=== PATIENT | female | born 1940 | race Caucasian/White ===

== ENCOUNTER 2016-11-06 19:56 | Inpatient (IN) | payer MEDICARE, OTHER ==
[2016-11-06] MEDS ORDERED: NORMAL SALINE 1000 ML 500 ML IV ONE (20:01)
[2016-11-06 20:32] LABS: ABSOLUTE BASOPHILS # (AUTO) 0.1 10^3/uL (0.0-0.2); ABSOLUTE EOSINOPHILS # (AUTO) 0.4 10^3/uL (0.0-0.6); ABSOLUTE LYMPHOCYTES (AUTO) 4.1 10^3/uL (0.5-4.7); ABSOLUTE MONOCYTES (AUTO) 0.6 10^3/uL (0.1-1.4); BASOPHILS % (AUTO) 1.4 % (0-2); EOSINOPHILS % (AUTO) 3.8 % (0-6); HEMATOCRIT 34.3 % (36.0-47.0); HEMOGLOBIN 10.9 g/dL (12.0-15.5); HGB HCT DIFFERENCE -1.6; LYMPHOCYTES % (AUTO) 44.1 % (13-45); MEAN CORPUSCULAR HEMOGLOBIN 26.6 pg (27.0-33.4); MEAN CORPUSCULAR HGB CONC 31.9 g/dL (32.0-36.0); MEAN CORPUSCULAR VOLUME 83 fl (80-97); RED BLOOD COUNT 4.11 10^6/uL (3.72-5.28); RED CELL DISTRIBUTION WIDTH 14.4 % (11.5-14.0); SEGMENTED NEUTROPHILS % (AUTO) 43.7 % (42-78); WHITE BLOOD COUNT 9.3 10^3/uL (4.0-10.5)
[2016-11-06 20:37] LABS: PROTHROMBIN TIME 12.8 SEC (11.4-15.4)
[2016-11-06 20:38] LABS: PARTIAL THROMBOPLASTIN TIME 32.8 SEC (23.5-35.8)
[2016-11-06 20:45] LABS: ALANINE AMINOTRANSFERASE 23 U/L (9-52); ALBUMIN 3.8 g/dL (3.5-5.0); ALKALINE PHOSPHATASE 96 U/L (38-126); ANION GAP 10 (5-19); ASPARTATE AMINO TRANSFERASE 16 U/L (14-36); BILIRUBIN,DIRECT 0.3 mg/dL (0.0-0.4); BILIRUBIN,TOTAL 0.4 mg/dL (0.2-1.3); BLOOD UREA NITROGEN 17 mg/dL (7-20); CALCIUM 9.6 mg/dL (8.4-10.2); CARBON DIOXIDE 25 mmol/L (22-30); CHLORIDE 108 mmol/L (98-107); CREATININE RESULT 0.76 mg/dL (0.52-1.25); GLUCOSE 113 mg/dL (75-110); SODIUM 142.7 mmol/L (137-145); TOTAL PROTEIN 6.4 g/dL (6.3-8.2)
--- NOTE | 2016-11-06 21:06 | ER Document Report ---
ED General - General Chief Complaint: Bloody Stools Stated Complaint: RECTAL BLEEDING Time Seen by Provider: 11/06/16 20:00 Notes: Patient is a 75 year old female without any significant past medical history, remote history of an upper GI bleed but no history of a lower GI bleed, last colonoscopy was greater than 10 years ago who presents with one episode of bright red blood per rectum. Patient states that she had a bowel movement approximately 2 hours prior to arrival which the entire toilet bowl is covered in bright red blood. She has not had any additional bowel movements since that time. She does not use anticoagulation. Notes that she has had some associated diffuse abdominal cramping that is mild in nature and not present at time of assessment. Nothing improves or worsens her symptoms. She has not spoken to her primary care doctor regarding today's concerns. TRAVEL OUTSIDE OF THE [place] IN LAST 30 DAYS: No - Related Data Allergies/Adverse Reactions: No Known Allergies Allergy (Unverified 04/26/14 17:18) Home Medications: Current Home Medications No Home Medications 11/07/16 [History] Past Medical History - General Information source: Patient - Social History Smoking Status: Never Smoker Chew tobacco use (# tins/day): No Frequency of alcohol use: None Drug Abuse: None Lives with: Spouse/Significant other Family History: Reviewed & Not Pertinent Pulmonary Medical History: Reports: Hx COPD Review of Systems - Review of Systems Notes: Constitutional: Negative for fever. HENT: Negative for sore throat. Eyes: Negative for visual changes. Cardiovascular: Negative for chest pain. Respiratory: Negative for shortness of breath. Gastrointestinal: Positive for rectal bleeding Genitourinary: Negative for dysuria. Musculoskeletal: Negative for back pain. Skin: Negative for rash. Neurological: Negative for headaches, weakness or numbness. 10 point ROS negative except as marked above and in HPI. Physical Exam - Vital signs Vitals: Resp Pulse Ox 18 96 11/06/16 20:04 11/06/16 20:04 Interpretation: Normal Notes: PHYSICAL EXAMINATION: GENERAL: Well-appearing, well-nourished and in no acute distress. HEAD: Atraumatic, normocephalic. EYES: Pupils equal round and reactive to light, extraocular movements intact, sclera anicteric, conjunctiva are normal. ENT: nares patent, oropharynx clear without exudates. Moist mucous membranes. NECK: Normal range of motion, supple without lymphadenopathy LUNGS: Breath sounds clear to auscultation bilaterally and equal. No wheezes rales or rhonchi. HEART: Regular rate and rhythm without murmurs ABDOMEN: Soft, nontender, normoactive bowel sounds. No guarding, no rebound. No masses appreciated. Rectal: Small amount of bright red blood without any masses or fissures seen on rectal examination EXTREMITIES: Normal range of motion, no pitting or edema. No cyanosis. NEUROLOGICAL: No focal neurological deficits. Moves all extremities spontaneously and on command. PSYCH: Normal mood, normal affect. SKIN: Warm, Dry, normal turgor, no rashes or lesions noted. Course - Re-evaluation Re-evalutation: 11/06/16 21:05 Patient presents with bright red blood per rectum, scant amount of blood on rectal exam at this time without any evidence of active hemorrhage. Patient is otherwise very well in appearance, awake, talking, has only had one bloody bowel movement. Hemodynamically within normal limits. Labs the type and screen will be sent. 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 Will discuss with the hospitalist for admission. 11/06/16 21:49 Patient has not had any further episodes of bright red blood per rectum. Remains hemodynamically within normal limits. Hemoglobin and hematocrit are only minimally decreased. I discussed Dr. Casey who agrees to admit. - Vital Signs Vital signs: Temp Pulse Resp BP Pulse Ox 97.9 F 65 22 H 135/63 H 100 11/06/16 23:55 11/06/16 23:55 11/06/16 23:55 11/06/16 23:55 11/06/16 23:55 - Laboratory Result Diagrams: 11/07/16 00:35 11/06/16 20:20 Laboratory results interpreted by me: 11/06/16 11/06/16 20:20 20:20 Hgb 10.9 L Hct 34.3 L MCH 26.6 L MCHC 31.9 L RDW 14.4 H Chloride 108 H Glucose 113 H Discharge - Discharge Clinical Impression: Bright red blood per rectum, Lower GI bleed Admitting Provider: Rhonda Casey Unit Admitted: [facility]
[2016-11-06] MEDS ORDERED: ONDANSETRON HCL INJ/PF 4 MG/2 ML SDV IV PRN (21:46)
[2016-11-06] MEDS: HEPARIN SOD (PORCINE) 5,000 UNIT/ML 1 ML SYRINGE SUBCUT SCH (22:00)
[2016-11-06] MEDS: NORMAL SALINE 1000 ML 1,000 ML IV SCH (22:16)
[2016-11-07 00:41] LABS: ABSOLUTE BASOPHILS # (AUTO) 0.1 10^3/uL (0.0-0.2); ABSOLUTE EOSINOPHILS # (AUTO) 0.3 10^3/uL (0.0-0.6); ABSOLUTE LYMPHOCYTES (AUTO) 3.4 10^3/uL (0.5-4.7); ABSOLUTE MONOCYTES (AUTO) 0.7 10^3/uL (0.1-1.4); ABSOLUTE NEUT (AUTO) 5.7 10^3/uL (1.7-8.2); BASOPHILS % (AUTO) 1.3 % (0-2); EOSINOPHILS % (AUTO) 2.9 % (0-6); HEMATOCRIT 31.4 % (36.0-47.0); HEMOGLOBIN 9.9 g/dL (12.0-15.5); HGB HCT DIFFERENCE -1.7; LYMPHOCYTES % (AUTO) 33.5 % (13-45); MEAN CORPUSCULAR HEMOGLOBIN 26.2 pg (27.0-33.4); MEAN CORPUSCULAR HGB CONC 31.5 g/dL (32.0-36.0); MEAN CORPUSCULAR VOLUME 83 fl (80-97); MONOCYTES % (AUTO) 6.4 % (3-13); RED BLOOD COUNT 3.76 10^6/uL (3.72-5.28); RED CELL DISTRIBUTION WIDTH 14.5 % (11.5-14.0); SEGMENTED NEUTROPHILS % (AUTO) 55.9 % (42-78); WHITE BLOOD COUNT 10.3 10^3/uL (4.0-10.5)
--- NOTE | 2016-11-07 00:51 | PDOC H&P ---
History of Present Illness Admission Date/PCP: 11/06/16 21:46 Patient complains of: Bright red blood per rectum History of Present Illness: LATOYA RHODES is a 75 year old female with a past medical history of tobacco dependence who has been her usual state of health until approximately 1 hour prior to presentation. Patient had a spontaneous nonpainful episode of bright red blood per rectum with bowel movement without constipation, new medication or previous episode. Estimated blood loss was approximately 1/2 cup she has had no further episodes. In the emergency room she is found to have a reduced hemoglobin of 10.9 and heme positive stools she is referred to the hospital for admission patient otherwise complains of chronic gnawing abdominal pain exacerbated by food resulting in frequent loose, floating and malodorous stools stools. Patient denies weight loss, significant fatigue or recent colonoscopy. Past Medical History Psychiatric Medical History: Reports: Tobacco Dependency Past Surgical History Past Surgical History: Reports: Cholecystectomy, Hysterectomy Social History Information Source: Patient Lives with: Spouse/Significant other - Spouse with advanced dementia and she is primary caregiver Smoking Status: Current Every Day Smoker Cigarettes Packs Per Day: 1 Frequency of Alcohol Use: None Hx Prescription Drug Abuse: No - Advance Directive Resuscitation Status: Full Code Family History Family History: DM, Malignancy Parental Family History Reviewed: Yes Children Family History Reviewed: Yes Sibling(s) Family History Reviewed.: Yes Medication/Allergy Allergies/Adverse Reactions: No Known Allergies Allergy (Unverified 04/26/14 17:18) Review of Systems Constitutional: PRESENT: as per HPI Eyes: ABSENT: visual disturbances Ears: ABSENT: hearing changes Cardiovascular: ABSENT: chest pain, dyspnea on exertion, edema, orthropnea, palpitations Respiratory: ABSENT: cough, hemoptysis Gastrointestinal: PRESENT: abdominal pain, bloating. ABSENT: coffee ground emesis, constipation, diarrhea, dysphagia, heartburn Genitourinary: ABSENT: dysuria, hematuria Musculoskeletal: ABSENT: joint swelling Integumentary: ABSENT: rash, wounds Neurological: ABSENT: abnormal gait, abnormal speech, confusion, dizziness, focal weakness, syncope Psychiatric: PRESENT: as per HPI Endocrine: ABSENT: cold intolerance, heat intolerance, polydipsia, polyuria Hematologic/Lymphatic: ABSENT: easy bleeding, easy bruising Physical Exam Vital Signs: Temp Pulse Resp BP Pulse Ox 97.9 F 65 22 H 135/63 H 100 11/06/16 23:55 11/06/16 23:55 11/06/16 23:55 11/06/16 23:55 11/06/16 23:55 General appearance: PRESENT: no acute distress, well-developed, well-nourished Head exam: PRESENT: atraumatic, normocephalic Eye exam: PRESENT: conjunctiva pink, EOMI, PERRLA. ABSENT: scleral icterus Ear exam: PRESENT: normal external ear exam Mouth exam: PRESENT: moist, tongue midline Neck exam: ABSENT: carotid bruit, JVD, lymphadenopathy, thyromegaly Respiratory exam: PRESENT: clear to auscultation keshav. ABSENT: rales, rhonchi, wheezes Cardiovascular exam: PRESENT: RRR. ABSENT: diastolic murmur, rubs, systolic murmur Pulses: PRESENT: normal dorsalis pedis pul Vascular exam: PRESENT: normal capillary refill GI/Abdominal exam: PRESENT: normal bowel sounds, soft. ABSENT: distended, guarding, mass, organolmegaly, rebound, tenderness Rectal exam: PRESENT: deferred Extremities exam: PRESENT: full ROM. ABSENT: calf tenderness, clubbing, pedal edema Neurological exam: PRESENT: alert, awake, oriented to person, oriented to place , oriented to time, oriented to situation, CN II-XII grossly intact. ABSENT: motor sensory deficit Psychiatric exam: PRESENT: appropriate affect, normal mood. ABSENT: homicidal ideation, suicidal ideation Skin exam: PRESENT: dry, intact, warm. ABSENT: cyanosis, rash Results Laboratory Results: 11/07/16 00:35 11/07/16 00:35 WBC 10.3 RBC 3.76 Hgb 9.9 L Hct 31.4 L MCV 83 MCH 26.2 L MCHC 31.5 L RDW 14.5 H Plt Count 259 Seg Neutrophils % 55.9 Lymphocytes % 33.5 Monocytes % 6.4 Eosinophils % 2.9 Basophils % 1.3 Absolute Neutrophils 5.7 Absolute Lymphocytes 3.4 Absolute Monocytes 0.7 Absolute Eosinophils 0.3 Absolute Basophils 0.1 Assessment & Plan - Diagnosis (1) Anemia Is this a current diagnosis for this admission?: YesPlan: Acute blood loss from lower GI bleed, no coagulopathy no constipation likely internal hemorrhoids will obtain GI consultation and follow-up CBC (2) Chronic abdominal pain Is this a current diagnosis for this admission?: YesPlan: Patient describes abdominal pain with meals frequent loose stools malodorous and floating concern for chronic pancreatitis with malabsorption will evaluate lipase and defer to gastroenterology (3) Tobacco abuse Is this a current diagnosis for this admission?: YesPlan: Tobacco Dependence patient received tobacco cessation counseling and offered nicotine replacement options (4) Bright red blood per rectum Is this a current diagnosis for this admission?: YesPlan: Likely internal hemorrhoid versus diverticular bleed GI consultation pending follow-up serial CBCs as needed blood transfusion - Time Time Spent: 50 to 70 Minutes - Inpatient Certification Medical Necessity: Need Close Monitoring Due to Risk of Patient Decompensation
[2016-11-07] MEDS: NORMAL SALINE 1000 ML 1,000 ML IV SCH (03:57)
[2016-11-07 06:02] LABS: ABSOLUTE BASOPHILS # (AUTO) 0.1 10^3/uL (0.0-0.2); ABSOLUTE EOSINOPHILS # (AUTO) 0.3 10^3/uL (0.0-0.6); ABSOLUTE LYMPHOCYTES (AUTO) 2.8 10^3/uL (0.5-4.7); ABSOLUTE MONOCYTES (AUTO) 0.7 10^3/uL (0.1-1.4); ABSOLUTE NEUT (AUTO) 4.7 10^3/uL (1.7-8.2); BASOPHILS % (AUTO) 1.4 % (0-2); EOSINOPHILS % (AUTO) 3.5 % (0-6); HEMATOCRIT 29.8 % (36.0-47.0); HEMOGLOBIN 9.6 g/dL (12.0-15.5); LYMPHOCYTES % (AUTO) 33.1 % (13-45); MEAN CORPUSCULAR HEMOGLOBIN 26.3 pg (27.0-33.4); MEAN CORPUSCULAR HGB CONC 32.1 g/dL (32.0-36.0); MEAN CORPUSCULAR VOLUME 82 fl (80-97); MONOCYTES % (AUTO) 7.9 % (3-13); RED BLOOD COUNT 3.64 10^6/uL (3.72-5.28); RED CELL DISTRIBUTION WIDTH 14.6 % (11.5-14.0); SEGMENTED NEUTROPHILS % (AUTO) 54.1 % (42-78); WHITE BLOOD COUNT 8.6 10^3/uL (4.0-10.5)
[2016-11-07] MEDS: HEPARIN SOD (PORCINE) 5,000 UNIT/ML 1 ML SYRINGE SUBCUT SCH (06:03)
[2016-11-07 08:22] LABS: ABSOLUTE BASOPHILS # (AUTO) 0.1 10^3/uL (0.0-0.2); ABSOLUTE EOSINOPHILS # (AUTO) 0.2 10^3/uL (0.0-0.6); ABSOLUTE LYMPHOCYTES (AUTO) 2.2 10^3/uL (0.5-4.7); ABSOLUTE MONOCYTES (AUTO) 0.5 10^3/uL (0.1-1.4); ABSOLUTE NEUT (AUTO) 4.8 10^3/uL (1.7-8.2); BASOPHILS % (AUTO) 1.5 % (0-2); EOSINOPHILS % (AUTO) 2.7 % (0-6); HEMATOCRIT 30.7 % (36.0-47.0); HEMOGLOBIN 9.7 g/dL (12.0-15.5); HGB HCT DIFFERENCE -1.6; LYMPHOCYTES % (AUTO) 28.3 % (13-45); MEAN CORPUSCULAR HEMOGLOBIN 26.5 pg (27.0-33.4); MEAN CORPUSCULAR HGB CONC 31.8 g/dL (32.0-36.0); MEAN CORPUSCULAR VOLUME 83 fl (80-97); RED BLOOD COUNT 3.68 10^6/uL (3.72-5.28); RED CELL DISTRIBUTION WIDTH 14.6 % (11.5-14.0); SEGMENTED NEUTROPHILS % (AUTO) 61.5 % (42-78); WHITE BLOOD COUNT 7.8 10^3/uL (4.0-10.5)
--- NOTE | 2016-11-07 10:47 | PROGRESS NOTE E ---
Progress Note NAME: LATOYA RHODES : 1940 AGE: 75Y DATE: 11/07/2016 ROOM: 315 SUBJECTIVE: The patient is lying in bed. She states that she feels overall just very tired. She denies any nausea, vomiting. No further diarrhea. No shortness of breath, dizziness, chest pain. No fevers, chills. The patient has been afebrile. Her blood pressures have been in a good range. The patient does not voice any other concerns at this time. REVIEW OF SYSTEMS: The rest of the review of systems is negative. MEDICATIONS: Medications have been reviewed. OBJECTIVE: GENERAL: The patient is a 75-year-old female who is awake, alert, and oriented to person, place, time, and situation. She is verbal, conversational, ambulatory. She does not appear to be in any acute distress. VITAL SIGNS: As follows: Temperature is 98.0, pulse 86, respirations 22, blood pressure 134/68, and oxygen saturation is 99% on room air. SKIN: Warm and dry. No rash, not diaphoretic. HEENT: Pupils are equal, round, reactive to light and accommodation. Conjunctiva is pink. No JVP. CARDIOVASCULAR: Heart is regular. No murmur or rub. CHEST: Clear, symmetrical, nonlabored. ABDOMEN: Soft, nontender, nondistended. BACK: No CVA tenderness or sacral edema. EXTREMITIES: No clubbing, cyanosis, edema. PSYCHIATRIC: Appropriate affect, pleasant mood. DIAGNOSTICS: Lab values are as follows. Hematology obtained on 11/07/2016: WBCs are 7.8, hemoglobin is 9.7, hematocrit is 30.7, platelet count is 264,000. Chemistry obtained on 11/06/2016: Sodium is 142, potassium 4, chloride 108, carbon dioxide is 25, BUN 17, creatinine 0.76, glucose 113, calcium is 9.6, lipase is 123.8. IMPRESSION AND PLAN: 1. LOWER GI BLEED. There is evidence of bright red bleeding per rectum. The patient's hemoglobin has gone from 10.9 down to 9.7. Will continue to monitor this. Currently awaiting GI input. Will continue clear liquid diet and will follow. 2. TOBACCO DEPENDENCY. Will continue p.r.n. nicotine patch. DISPOSITION: THE PATIENT IS A FULL CODE. Pending patient's symptomatology and diagnostic findings, will re-evaluate in the a.m. Time spent on this followup, including assessment/plan, physical examination, patient education, is 25 minutes. ADDENDUM: The patient has had a reoccurrence of bleeding since arrival. Patient continues to be weak. Estimated blood loss >50cc. Concern for hemorrhage therefore will remain inpatient. Will repeat labs and transfuse accordingly. DICTATING PHYSICIAN: KYUNG ARAYA NP [id number] PHY#: [id number] ID: [id number] JOB#: [id number] ACCT: [id number] cc: > MTDD
--- NOTE | 2016-11-07 12:16 | Physician Advisory Note ---
Physician Advisor ProgressNote .: Pursuant to the plan for [facility], I have reviewed the medical record for this patient. Physician Advisor Statement: Please consider documentin. "Attending is concerned about pt & feels need for 2nd MN of monitoring in hospital because " - or else she may be more approp as Obs. Status: 75yo Medicare pt w/COPD, ongoing tobacco abuse, distant [facility], past shannon, who came in after 1 episode BRBPR w/abd cramping, admitting to bloating & chr abd pain worsened by food w/freq loose malodorous stools. Last baseline Hgb per hosp chart was 14 in 2013. Came in NAD with initial HR 92 then 60s-70s, RR22, BP 135/63, Hgb 10.9, WBC nl, lipase 123.8. ED gave 500ml IVF. Admitting attending ordered tele, IV Zofran, GI consult, clear liquids po, CBC q6h, SQ heparin q8h for DVT prophylaxis, I/Os, daily wts, O2 2L. F/u Hgbs - high 9s. After first MN, nursing documented pt had 1 maroon BM, then 2 more bloody BMs, then reported to MD swan called critical Hgb of 7.8 at 06:25, for which transfusion was ordered. Subsequently, it was found that Hgb level was actually still high 9s. She is feeling very tired. HR still 60s-70s. BP steady. GI eval is planned. Spoke w/attg. She notes pt has had yet another bloody BM in the last hour per nursing - bleeding remains acute, has not stabilized. She is concerned about pt & does not feel comfortable sending her home today. Should have been Obs to start. However, now appropriate for Inpt status. CK
[2016-11-07] MEDS ORDERED: ONDANSETRON HCL INJ/PF 4 MG/2 ML SDV IV PRN (12:20)
[2016-11-07 12:35] LABS: ABSOLUTE BASOPHILS # (AUTO) 0.1 10^3/uL (0.0-0.2); ABSOLUTE EOSINOPHILS # (AUTO) 0.2 10^3/uL (0.0-0.6); ABSOLUTE LYMPHOCYTES (AUTO) 2.7 10^3/uL (0.5-4.7); ABSOLUTE MONOCYTES (AUTO) 0.4 10^3/uL (0.1-1.4); ABSOLUTE NEUT (AUTO) 4.6 10^3/uL (1.7-8.2); BASOPHILS % (AUTO) 1.3 % (0-2); EOSINOPHILS % (AUTO) 2.1 % (0-6); HEMOGLOBIN 8.9 g/dL (12.0-15.5); HGB HCT DIFFERENCE -1.3; LYMPHOCYTES % (AUTO) 33.5 % (13-45); MEAN CORPUSCULAR HEMOGLOBIN 26.4 pg (27.0-33.4); MEAN CORPUSCULAR HGB CONC 31.9 g/dL (32.0-36.0); MEAN CORPUSCULAR VOLUME 83 fl (80-97); MONOCYTES % (AUTO) 5.5 % (3-13); RED BLOOD COUNT 3.38 10^6/uL (3.72-5.28); RED CELL DISTRIBUTION WIDTH 14.6 % (11.5-14.0); SEGMENTED NEUTROPHILS % (AUTO) 57.6 % (42-78); WHITE BLOOD COUNT 7.9 10^3/uL (4.0-10.5)
[2016-11-07 18:35] LABS: ABSOLUTE BASOPHILS # (AUTO) 0.1 10^3/uL (0.0-0.2); ABSOLUTE EOSINOPHILS # (AUTO) 0.2 10^3/uL (0.0-0.6); ABSOLUTE LYMPHOCYTES (AUTO) 3.2 10^3/uL (0.5-4.7); ABSOLUTE MONOCYTES (AUTO) 0.6 10^3/uL (0.1-1.4); ABSOLUTE NEUT (AUTO) 4.1 10^3/uL (1.7-8.2); BASOPHILS % (AUTO) 1.2 % (0-2); EOSINOPHILS % (AUTO) 2.4 % (0-6); HEMATOCRIT 26.3 % (36.0-47.0); HEMOGLOBIN 8.3 g/dL (12.0-15.5); HGB HCT DIFFERENCE -1.4; LYMPHOCYTES % (AUTO) 39.1 % (13-45); MEAN CORPUSCULAR HEMOGLOBIN 26.4 pg (27.0-33.4); MEAN CORPUSCULAR HGB CONC 31.7 g/dL (32.0-36.0); MEAN CORPUSCULAR VOLUME 83 fl (80-97); MONOCYTES % (AUTO) 7.1 % (3-13); RED BLOOD COUNT 3.16 10^6/uL (3.72-5.28); RED CELL DISTRIBUTION WIDTH 14.5 % (11.5-14.0); SEGMENTED NEUTROPHILS % (AUTO) 50.2 % (42-78); WHITE BLOOD COUNT 8.1 10^3/uL (4.0-10.5)
[2016-11-07] MEDS ORDERED: BISACODYL 5 MG TABEC PO ONE (21:00)
[2016-11-08 00:32] LABS: ABSOLUTE BASOPHILS # (AUTO) 0.1 10^3/uL (0.0-0.2); ABSOLUTE EOSINOPHILS # (AUTO) 0.3 10^3/uL (0.0-0.6); ABSOLUTE MONOCYTES (AUTO) 0.6 10^3/uL (0.1-1.4); BASOPHILS % (AUTO) 1.2 % (0-2); EOSINOPHILS % (AUTO) 3.2 % (0-6); HEMATOCRIT 25.5 % (36.0-47.0); HEMOGLOBIN 8.1 g/dL (12.0-15.5); HGB HCT DIFFERENCE -1.2; LYMPHOCYTES % (AUTO) 37.7 % (13-45); MEAN CORPUSCULAR HEMOGLOBIN 26.1 pg (27.0-33.4); MEAN CORPUSCULAR HGB CONC 31.6 g/dL (32.0-36.0); MEAN CORPUSCULAR VOLUME 83 fl (80-97); MONOCYTES % (AUTO) 7.5 % (3-13); RED BLOOD COUNT 3.09 10^6/uL (3.72-5.28); RED CELL DISTRIBUTION WIDTH 14.5 % (11.5-14.0); SEGMENTED NEUTROPHILS % (AUTO) 50.4 % (42-78); WHITE BLOOD COUNT 7.9 10^3/uL (4.0-10.5)
[2016-11-08 06:51] LABS: ABSOLUTE BASOPHILS # (AUTO) 0.1 10^3/uL (0.0-0.2); ABSOLUTE EOSINOPHILS # (AUTO) 0.2 10^3/uL (0.0-0.6); ABSOLUTE LYMPHOCYTES (AUTO) 2.2 10^3/uL (0.5-4.7); ABSOLUTE MONOCYTES (AUTO) 0.6 10^3/uL (0.1-1.4); ABSOLUTE NEUT (AUTO) 4.6 10^3/uL (1.7-8.2); BASOPHILS % (AUTO) 1.2 % (0-2); EOSINOPHILS % (AUTO) 2.4 % (0-6); HEMATOCRIT 26.7 % (36.0-47.0); HEMOGLOBIN 8.4 g/dL (12.0-15.5); HGB HCT DIFFERENCE -1.5; LYMPHOCYTES % (AUTO) 28.9 % (13-45); MEAN CORPUSCULAR HEMOGLOBIN 26.2 pg (27.0-33.4); MEAN CORPUSCULAR HGB CONC 31.6 g/dL (32.0-36.0); MEAN CORPUSCULAR VOLUME 83 fl (80-97); MONOCYTES % (AUTO) 7.3 % (3-13); RED BLOOD COUNT 3.21 10^6/uL (3.72-5.28); RED CELL DISTRIBUTION WIDTH 14.3 % (11.5-14.0); SEGMENTED NEUTROPHILS % (AUTO) 60.2 % (42-78); WHITE BLOOD COUNT 7.7 10^3/uL (4.0-10.5)
[2016-11-08] MEDS ORDERED: PEG 3350/NA SULF,BICARB,CL/KCL 4000 ML PO ONE (07:00)
--- NOTE | 2016-11-08 12:48 | PROGRESS NOTE E ---
Progress Note NAME: LATOYA RHODES : 1940 AGE: 75Y DATE: 11/08/2016 ROOM: 315 SUBJECTIVE: The patient was ambulating in the room whenever I rounded. The patient stated that she had blood-tinged bowel movements throughout the night with her GoLYTELY prep. The patient was seen by Dr. Castillo and is to have upper and lower endoscopies today. The patient denies any nausea, vomiting, diarrhea. No shortness of breath, dizziness, or chest pain. No fevers or chills. The patient has been afebrile. Blood pressure has been in a good range. The patient does not voice any other concerns at this time. REVIEW OF SYSTEMS: The rest of the review of systems is negative. MEDICATIONS: Medications have been reviewed. OBJECTIVE: GENERAL: The patient is a 75-year-old female who is awake, alert, and oriented to person, place, time, and situation. She is verbal and conversational, ambulatory, and does not appear to be in any acute distress. VITAL SIGNS: Temperature is 98.6, pulse 84, respirations 18, blood pressure is 143/71, oxygen saturation is 95% on room air. SKIN: Warm and dry. No rash. She is not diaphoretic. HEENT: Pupils equal, round, and reactive to light and accommodation. Conjunctivae pink. NECK: No JVD. CARDIOVASCULAR SYSTEM: Heart is regular. There is no murmur or rub. CHEST: Clear, symmetrical, unlabored. ABDOMEN: Soft, nontender, and nondistended. BACK: No CVA tenderness or sacral edema. EXTREMITIES: No clubbing, cyanosis, edema. IMPRESSION AND PLAN: 1. LOWER GI BLEED. THE PATIENT HAS HAD ONGOING BLOOD LOSS THROUGHOUT THE EVENING. HEMOGLOBIN HAS TRENDED DOWN SLIGHTLY. Will continue to monitor this. Do appreciate GI input with this. Will repeat CBC as needed and await findings on endoscopy. 2. TOBACCO DEPENDENCY. Will continue p.r.n. nicotine patch. DISPOSITION: The patient is a FULL CODE. Pending the patient's symptomatology and diagnostic findings, will reevaluate in the a.m. TIME: Time spent on this followup including assessment, plan, physical examination, and patient education was 20 minutes. DICTATING PHYSICIAN: KYUNG ARAYA NP [id number] PHY#: [id number] ID: [id number] JOB#: [id number] ACCT: [id number] cc: >
[2016-11-08] MEDS ORDERED: NALOXONE HCL INJ/PF 0.4 MG/1 ML SDV ONE (16:11)
[2016-11-08] MEDS ORDERED: FLUMAZENIL INJ 0.5 MG/5 ML VIAL IV ONE (16:11)
[2016-11-08] MEDS ORDERED: EPINEPHRINE INJ 1 MG/10 ML DISP.SYRIN ONE (16:11)
[2016-11-08] MEDS ORDERED: GLUCAGON,HUMAN RECOMB 1 MG INJ ONE (16:12)
[2016-11-08] MEDS ORDERED: NORMAL SALINE 250 ML IV PRN ×2 (18:16)
--- NOTE | 2016-11-08 18:16 | PDOC CONSULTATION ---
Consultation Consult Date: 11/07/16 History of Present Illness Admission Date/PCP: 11/06/16 21:46 History of Present Illness: This is a 75-year-old patient was admitted with rectal bleeding. Bleeding started about 2-1/2 days ago and she is still passing slight amount of blood. She denies abdominal pain, nausea, or vomiting. Her last colonoscopy was over 10 years ago. She is not sure if she has diverticulosis. Her admission hemoglobin was 10.9, down to 8.4 but stable for the last 12 hours. The last available hemoglobin in January 2014 was 14.2. Past Medical History Pulmonary Medical History: Reports: Chronic Obstructive Pulmonary Disease (COPD) Psychiatric Medical History: Reports: Tobacco Dependency Past Surgical History Past Surgical History: Reports: Cholecystectomy, Hysterectomy Social History Lives with: Spouse/Significant other Smoking Status: Never Smoker Cigarettes Packs Per Day: 1 Frequency of Alcohol Use: None Hx Prescription Drug Abuse: No - Advance Directive Resuscitation Status: Full Code Family History Family History: Reviewed & Not Pertinent Parental Family History Reviewed: No Children Family History Reviewed: NA Sibling(s) Family History Reviewed.: NA Medication/Allergy Home Medications: No Home Medications 11/07/16 Allergies/Adverse Reactions: No Known Allergies Allergy (Unverified 04/26/14 17:18) Review of Systems All systems: reviewed and no additional remarkable complaints except as stated Physical Exam Vital Signs: Temp Pulse Resp BP Pulse Ox 98.4 F 79 20 117/94 H 100 11/08/16 16:21 11/08/16 16:21 11/08/16 16:21 11/08/16 16:21 11/08/16 16:21 Intake & Output 11/07/16 11/08/16 11/09/16 06:59 06:59 06:59 Intake Total 1493 1597 0 Output Total 850 2000 1100 Balance 643 -403 -1100 Weight 79 kg 77.5 kg Exam: General: Patient is alert and looks well. HEENT: There is pallor but no jaundice. PERRLA. Oropharynx normal Respiratory: Kyphosis. No respiratory distress. Chest wall palpitation was unremarkable. Breath sounds were normal Cardiovascular: Heart sounds 1 and 2 normal with no murmurs. Abdominal: Not distended. Soft and nontender. Liver and spleen not palpable. No ascites demonstrated. Bowel sounds active. Rectal examination was deferred. Extremities: No edema Neurological: Alert and oriented x4. Grossly nonfocal. Normal speech Skin: No significant rash Psychological: Normal affect Results Laboratory Results: 11/08/16 06:33 11/07/16 11/08/16 11/08/16 18:08 00:26 06:33 WBC 8.1 7.9 7.7 RBC 3.16 L 3.09 L 3.21 L Hgb 8.3 L 8.1 L 8.4 L Hct 26.3 L 25.5 L 26.7 L MCV 83 83 83 MCH 26.4 L 26.1 L 26.2 L MCHC 31.7 L 31.6 L 31.6 L RDW 14.5 H 14.5 H 14.3 H Plt Count 230 218 245 Seg Neutrophils % 50.2 50.4 60.2 Lymphocytes % 39.1 37.7 28.9 Monocytes % 7.1 7.5 7.3 Eosinophils % 2.4 3.2 2.4 Basophils % 1.2 1.2 1.2 Absolute Neutrophils 4.1 4.0 4.6 Absolute Lymphocytes 3.2 3.0 2.2 Absolute Monocytes 0.6 0.6 0.6 Absolute Eosinophils 0.2 0.3 0.2 Absolute Basophils 0.1 0.1 0.1 Assessment & Plan - Diagnosis (1) Lower GI bleed Is this a current diagnosis for this admission?: YesPlan: She likely has a diverticular bleed but she will undergo an EGD and colonoscopy for further evaluation. She has had significant drop in her hemoglobin and she will be transfused (2) Anemia Qualifiers: Other causes of anemia: acute posthemorrhagic Is this a current diagnosis for this admission?: Yes (3) Bright red blood per rectum Is this a current diagnosis for this admission?: Yes
[2016-11-08] MEDS: MIDAZOLAM 2 MG/2 ML INJ ONE ×3 (18:19→18:42)
[2016-11-08] MEDS: FENTANYL CITRATE INJ/PF 100 MCG/2 ML AMPUL ONE ×3 (18:21→18:52)
--- NOTE | 2016-11-08 19:09 | Operative Report ---
Operative Report DATE OF SURGERY: 11/08/16 Operative Report: Pre-op diagnosis: GI bleed Post-op diagnosis: 1. Antral gastritis 2. Left-sided diverticulosis 3. Sigmoid colon polyps 4. Redundant colon Surgery: Upper endoscopy with biopsy and Colonoscopy with polypectomy Medications: Versed 5mg, Fentanyl 150mcg IV push Tissue removed: Antral biopsy and colon polyps Procedure: After informed consent obtained from patient, patient's pharynx was sprayed with Hurricane and conscious sedation was achieved. The upper endoscope was then inserted into the esophagus under direct vision and advanced into the stomach and further into the duodenum. Detailed examination of the duodenum, stomach and the esophagus was then performed. A digital rectal examination was performed and this was unremarkable. The colonoscope was inserted into the rectum and advanced to the proximal ascending colon. Patient has a very redundant colon and it was difficult to keep her sedated. The mucosa was examined into details as the colonoscope was slowly pulled out of the patient. The endoscope was retroflexed in the rectum. Patient tolerated the procedure well. Findings Esophagus: Normal Stomach: Mild erythema in the gastric antrum Duodenum: Normal Cecum: Not intubated Ascending colon: Normal Transverse colon: Normal Descending colon: A few diverticuli Sigmoid colon: Multiple diverticuli. Two 5-6 mm polyps removed with a hot polypectomy snare Rectum: Normal except for internal hemorrhoids Plan: Her bleeding is most likely from her diverticular disease. Follow-up H& H. Repeat colonoscopy as outpatient and with propofol OPERATION: .
[2016-11-09 04:28] LABS: ABSOLUTE BASOPHILS # (AUTO) 0.1 10^3/uL (0.0-0.2); ABSOLUTE EOSINOPHILS # (AUTO) 0.2 10^3/uL (0.0-0.6); ABSOLUTE LYMPHOCYTES (AUTO) 2.9 10^3/uL (0.5-4.7); ABSOLUTE MONOCYTES (AUTO) 0.6 10^3/uL (0.1-1.4); ABSOLUTE NEUT (AUTO) 4.6 10^3/uL (1.7-8.2); BASOPHILS % (AUTO) 1.2 % (0-2); EOSINOPHILS % (AUTO) 2.2 % (0-6); HEMATOCRIT 29.3 % (36.0-47.0); HEMOGLOBIN 9.4 g/dL (12.0-15.5); HGB HCT DIFFERENCE -1.1; LYMPHOCYTES % (AUTO) 34.7 % (13-45); MEAN CORPUSCULAR HEMOGLOBIN 26.7 pg (27.0-33.4); MEAN CORPUSCULAR VOLUME 84 fl (80-97); MONOCYTES % (AUTO) 7.4 % (3-13); RED BLOOD COUNT 3.51 10^6/uL (3.72-5.28); RED CELL DISTRIBUTION WIDTH 14.6 % (11.5-14.0); SEGMENTED NEUTROPHILS % (AUTO) 54.5 % (42-78); WHITE BLOOD COUNT 8.4 10^3/uL (4.0-10.5)
--- NOTE | 2016-11-09 09:53 | DISCHARGE SUMMARY E ---
Discharge Summary NAME: LATOYA RHODES : 1940 AGE: 75Y ADMITTED: 11/06/2016 DISCHARGED: 11/09/2016 CODE STATUS: FULL CODE. CONSULTING SNOWBOARDING INSTRUCTOR: Dr. Castillo DISCHARGE DIAGNOSES: Includes: 1. Diverticular bleed. 2. Acute blood loss anemia. 3. Tobacco dependency. DISCHARGE MEDICATIONS: None. DIET: Low residual. ACTIVITY: As tolerated. DIAGNOSTICS: Lab values are as follows: Hematology obtained on 11/09/2016: WBCs are 8.4, hemoglobin is 9.4, hematocrit is 29.3, platelet count is 190,000. Coagulation obtained on 11/06/2016: PT is 12.8, INR is 0.90. Chemistry obtained on 11/06/2016: Sodium is 142, potassium 4.0, chloride is 108, carbon dioxide 25, BUN 17, creatinine is 0.76. Glucose 113, calcium is 9.6, bilirubin 0.4. AST 16, ALT is 23, Alk phos 96, total protein 6.4, albumin 3.8, lipase is 123. Other body source obtained on 11/06/2016: Stool for occult blood is positive. EGD and colonoscopy obtained on 11/08/2016 reveals: 1. Antral gastritis. 2. Left-sided diverticulosis. 3. Sigmoid colon polyps. 4. Redundant colon. PHYSICAL EXAMINATION: GENERAL: On examination, the patient is a well-developed, well-nourished 75-year-old female who is awake, alert, and oriented to person, place, time, and situation. She is verbal, conversational, ambulatory, does not appear to be in acute distress. VITAL SIGNS: Temperature is 98.1, pulse 54, respirations 18, blood pressure 123/52, oxygen saturation 98% on room air. SKIN: Warm and dry. No rash. Not diaphoretic. HEENT: Pupils equal, round, and reactive to light and accommodation. Conjunctivae pink. No JVP. CARDIOVASCULAR SYSTEM: Heart is regular. There is no murmur or rub. CHEST: Clear, symmetrical, unlabored. ABDOMEN: Soft, nontender, nondistended. BACK: No CVA tenderness or sacral edema. EXTREMITIES: No clubbing, cyanosis, edema. PSYCHIATRIC: Appropriate affect, pleasant mood. HISTORY OF PRESENT ILLNESS: The patient is a 75-year-old female with a past medical history of only tobacco dependency. The patient presented to the emergency department with a chief complaint of bright red bleeding per rectum. The patient noted spontaneous nonpainful episode of bright red bleeding with a bowel movement without constipation. The patient denied any previous event for this except for the remote history years ago. The patient estimated her blood loss to be about a half a cup, and while in the emergency department, she was noted to have a hemoglobin of 10.9 with heme-positive stools. The patient was referred to the hospitalist for admission and management. HOSPITAL COURSE: The patient was admitted to continuous telemetry unit. Serial hemoglobins were obtained, which showed initial drop, but overall improvement of her hemoglobin. The patient was seen and evaluated by Dr. Castillo with Gastroenterology and the patient underwent upper and lower endoscopy. Findings were consistent with antral gastritis and diverticulosis. Although there was no obvious stigmata, it was felt that her symptoms were related to a diverticular bleed, which has been self limiting as the patient has had no further episodes since prior to being prepped. The patient is completely asymptomatic and denies any nausea, vomiting, diarrhea, shortness of breath, dizziness, chest pain. No fevers, chills. The patient is afebrile. Her blood pressure has been in a good range and the patient is eager for discharge. DISCHARGE PLANNING: The patient is advised to follow up with Dr. Castillo within 1-2 weeks for hospital followup. Time spent on this discharge including assessment, plan, physical examination, patient education, and specialty collaboration is 25 minutes. DICTATING PHYSICIAN: KYUNG ARAYA NP [id number] Y#: [id number] ID: [id number] JOB#: [id number] ACCT: [id number] cc:Jeane ALMANZA NP >
[2016-11-09 10:30] VITALS: BP 121/59
== END 2016-11-09 11:07 | disposition home or self-care (01) | DRG 378 ==
LOC: ER 19:56 → EH 21:46 → UNDOADMIN 22:14 → 3W 11-07 00:13
PROVIDERS: ADMIT Internal Medicine; ATTEND Internal Medicine
PROC: 30233N1 Transfusion of Nonautologous Red Blood Cells into Peripheral Vein, Percutaneous Approach (ICD-10-PCS; 2016-11-08)
PROC: 0DB68ZX Excision of Stomach, Via Natural or Artificial Opening Endoscopic, Diagnostic (ICD-10-PCS; principal; 2016-11-08 17:00)
PROC: 0DBN8ZZ Excision of Sigmoid Colon, Via Natural or Artificial Opening Endoscopic (ICD-10-PCS; 2016-11-08 17:00)
DX: K57.31 Diverticulosis of large intestine without perforation or abscess with bleeding (principal); D62 Acute posthemorrhagic anemia; K29.70 Gastritis, unspecified, without bleeding; K63.5 Polyp of colon; J44.9 Chronic obstructive pulmonary disease, unspecified; M40.209 Unspecified kyphosis, site unspecified; F17.210 Nicotine dependence, cigarettes, uncomplicated; Z90.49 Acquired absence of other specified parts of digestive tract; Z90.710 Acquired absence of both cervix and uterus; Z83.3 Family history of diabetes mellitus; Z80.9 Family history of malignant neoplasm, unspecified
CPT/HCPCS: 36415; 36430; 43239; 45385; 80053; 82272; 83690; 85025; 85610; 85730; 86850; 86900; 86901; 86920; 88305; 88342; 96360; 96372; 99285; J0171; J1610; J1644; J2250; J2310; J3010; J3490; J7030; P9016

== ENCOUNTER → 2016-12-19 | Outpatient (CLI) | payer MEDICARE, OTHER ==
[2016-12-19 10:34] LABS: HEMATOCRIT 34.7 % (36.0-47.0); HEMOGLOBIN 11.2 g/dL (12.0-15.5); HGB HCT DIFFERENCE -1.1; MEAN CORPUSCULAR HEMOGLOBIN 26.7 pg (27.0-33.4); MEAN CORPUSCULAR HGB CONC 32.3 g/dL (32.0-36.0); MEAN CORPUSCULAR VOLUME 83 fl (80-97); RED CELL DISTRIBUTION WIDTH 16.2 % (11.5-14.0)
== END ==
LOC: OD 09:32
PROVIDERS: ATTEND Physician Assistant Surgical
DX: K29.00 Acute gastritis without bleeding (principal); D12.5 Benign neoplasm of sigmoid colon; K62.5 Hemorrhage of anus and rectum
CPT/HCPCS: 36415; 85027

== ENCOUNTER 2017-08-25 10:31 | Emergency (ER) | payer MEDICARE, OTHER ==
--- NOTE | 2017-08-25 11:19 | ER Document Report ---
ED General - General Chief Complaint: Rectal Bleeding Stated Complaint: BLEEDING FROM RECTUM Time Seen by Provider: 08/25/17 11:08 Mode of Arrival: Ambulatory Information source: Patient Notes: 76-year-old female history of hemorrhoids presents with complaints of bright red rectal bleeding over the past week. Patient notes she feels generalized weakness but denies any specific chest pain shortness of breath difficulty breathing headache dizziness or any other complaints. She sees Dr. Castillo and just wanted her blood work checked to make sure that she is not anemic from the blood loss. She does not it is not a significant amount that is just bright red and believes it is from her hemorrhoids TRAVEL OUTSIDE OF THE [place] IN LAST 30 DAYS: No - HPI Onset: Last week Onset/Duration: Intermittent Quality of pain: No pain Severity: Mild Pain Level: Denies Associated symptoms: Weakness, Other Exacerbated by: Other - wiping Relieved by: Denies Similar symptoms previously: Yes Recently seen / treated by doctor: Yes - Related Data Allergies/Adverse Reactions: No Known Allergies Allergy (Verified 08/25/17 10:32) Past Medical History - Social History Smoking Status: Current Every Day Smoker Cigarette use (# per day): Yes Chew tobacco use (# tins/day): No Smoking Education Provided: No Frequency of alcohol use: None Drug Abuse: None Family History: Reviewed & Not Pertinent Patient has suicidal ideation: No Patient has homicidal ideation: No Pulmonary Medical History: Reports: Hx COPD Neurological Medical History: Denies: Hx Seizures Renal/ Medical History: Denies: Hx Peritoneal Dialysis Past Surgical History: Reports: Hx Cholecystectomy, Hx Hysterectomy, Hx Orthopedic Surgery - Right knee - Immunizations Hx Pneumococcal Vaccination: 05/01/15 Review of Systems - Review of Systems Notes: REVIEW OF SYSTEMS: CONSTITUTIONAL : Denies fever, chills, or sweats. Denies recent illness. EENT: Denies eye, ear, throat, or mouth pain or symptoms. Denies nasal or sinus congestion or discharge. Denies throat, tongue, or mouth swelling or difficulty swallowing. CARDIOVASCULAR: Denies chest pain. Denies palpitations or racing or irregular heart beat. Denies ankle edema. RESPIRATORY: Denies cough, cold, or chest congestion. Denies shortness of breath, difficulty breathing, or wheezing. GASTROINTESTINAL: admits to right red rectal bleeding GENITOURINARY: Denies difficulty urinating, painful urination, burning, frequency, blood in urine, or discharge. MUSCULOSKELETAL: Denies back or neck pain or stiffness. Denies joint pain or swelling. SKIN: Denies rash, lesions or sores. HEMATOLOGIC : Denies easy bruising or bleeding. LYMPHATIC: Denies swollen, enlarged glands. NEUROLOGICAL: admits to weakness PSYCHIATRIC: Denies anxiety or stress. Denies depression, suicidal ideation, or homicidal ideation. ALL OTHER SYSTEMS REVIEWED AND NEGATIVE. Dictation was performed using [email or web address] voice recognition software PHYSICAL EXAMINATION: GENERAL: Well-appearing, well-nourished and in no acute distress. HEAD: Atraumatic, normocephalic. EYES: Pupils equal round and reactive to light, extraocular movements intact, sclera anicteric, conjunctiva are normal. ENT: Nares patent, oropharynx clear without exudates. Moist mucous membranes. NECK: Normal range of motion, supple without lymphadenopathy LUNGS: Breath sounds clear to auscultation bilaterally and equal. No wheezes rales or rhonchi. HEART: Regular rate and rhythm without murmurs ABDOMEN: Soft, nontender, nondistended abdomen. No guarding, no rebound. No masses appreciated. bright red rectal bleeding noted from hemorrhoid Musculoskeletal: Normal range of motion, no pitting or edema. No cyanosis. NEUROLOGICAL: Cranial nerves grossly intact. Normal speech, normal gait. Normal sensory, motor exams PSYCH: Normal mood, normal affect. SKIN: Warm, Dry, normal turgor, no rashes or lesions noted. Physical Exam - Vital signs Vitals: Temp Pulse Resp BP Pulse Ox 98.3 F 80 18 157/69 H 96 08/25/17 10:38 08/25/17 10:38 08/25/17 10:38 08/25/17 10:38 08/25/17 10:38 Course - Re-evaluation Re-evalutation: 08/25/17 11:38 Patient's examination is most consistent with a hemorrhoid that is bleeding, she denies any blood in her stool only when she wipes, patient notes she has follow-up with Dr. Castillo on Monday08/25/17 12:35 Patient's lab work notes no anemia, she wishes to be discharged home to follow- up with her GI specialist, given that she is stable is not actively bleeding heavily I believe she is stable for discharge After performing a Medical Screening Examination, I estimate there is LOW risk for ACUTE APPENDICITIS, BOWEL OBSTRUCTION, ACUTE CHOLECYSTITIS, PERFORATED DIVERTICULITIS, INCARCERATED HERNIA, PANCREATITIS, PELVIC INFLAMMATORY DISEASE, PERFORATED ULCER, ECTOPIC , or TUBO-OVARIAN ABSCESS, thus I consider the discharge disposition reasonable. Also, there is no evidence or peritonitis , sepsis, or toxicity. I have reevaluated this patient multiple times and no significant life threatening changes are noted. The patient and I have discussed the diagnosis and risks, and we agree with discharging home with close follow-up with the understanding that symptoms and presentations can change. We also discussed returning to the Emergency Department immediately if new or worsening symptoms occur. We have discussed the symptoms which are most concerning (e.g., bloody stool, fever, changing or worsening pain, vomiting) that necessitate immediate return. - Vital Signs Vital signs: Temp Pulse Resp BP Pulse Ox 98.3 F 80 18 157/69 H 96 08/25/17 10:38 08/25/17 10:38 08/25/17 10:38 08/25/17 10:38 08/25/17 10:38 - Laboratory Result Diagrams: 08/25/17 11:48 08/25/17 11:48 Laboratory results interpreted by me: 08/25/17 08/25/17 11:48 11:48 MCH 26.9 L RDW 16.4 H Chloride 108 H Discharge - Discharge Clinical Impression: Bright red blood per rectum Condition: Stable Disposition: HOME, SELF-CARE Instructions: Rectal Bleeding, Unclear Cause ([facility]) Additional Instructions: Please follow-up with Dr. Castillo on Monday per your previous appointment or return immediately if there are any symptoms or any other worsening conditions
[2017-08-25 12:06] LABS: ABSOLUTE BASOPHILS # (AUTO) 0.1 10^3/uL (0.0-0.2); ABSOLUTE EOSINOPHILS # (AUTO) 0.2 10^3/uL (0.0-0.6); ABSOLUTE LYMPHOCYTES (AUTO) 2.1 10^3/uL (0.5-4.7); ABSOLUTE MONOCYTES (AUTO) 0.5 10^3/uL (0.1-1.4); ABSOLUTE NEUT (AUTO) 6.3 10^3/uL (1.7-8.2); BASOPHILS % (AUTO) 0.9 % (0-2); EOSINOPHILS % (AUTO) 2.5 % (0-6); HEMATOCRIT 40.2 % (36.0-47.0); HEMOGLOBIN 13.1 g/dL (12.0-15.5); MEAN CORPUSCULAR HEMOGLOBIN 26.9 pg (27.0-33.4); MEAN CORPUSCULAR HGB CONC 32.5 g/dL (32.0-36.0); MEAN CORPUSCULAR VOLUME 83 fl (80-97); MONOCYTES % (AUTO) 5.7 % (3-13); PLATELET COUNT 340 10^3/uL (150-450); RED BLOOD COUNT 4.86 10^6/uL (3.72-5.28); RED CELL DISTRIBUTION WIDTH 16.4 % (11.5-14.0); SEGMENTED NEUTROPHILS % (AUTO) 67.9 % (42-78); TOTAL CELLS COUNTED % (AUTO) 100 %; WHITE BLOOD COUNT 9.3 10^3/uL (4.0-10.5)
[2017-08-25 12:19] LABS: ALANINE AMINOTRANSFERASE 21 U/L (9-52); ALKALINE PHOSPHATASE 100 U/L (38-126); ANION GAP 8 (5-19); ASPARTATE AMINO TRANSFERASE 17 U/L (14-36); BILIRUBIN,DIRECT 0.2 mg/dL (0.0-0.4); BILIRUBIN,TOTAL 0.4 mg/dL (0.2-1.3); BLOOD UREA NITROGEN 10 mg/dL (7-20); CALCIUM 9.7 mg/dL (8.4-10.2); CARBON DIOXIDE 29 mmol/L (22-30); CHLORIDE 108 mmol/L (98-107); GLUCOSE 108 mg/dL (75-110); POTASSIUM 4.2 mmol/L (3.6-5.0); SODIUM 144.8 mmol/L (137-145); TOTAL PROTEIN 6.6 g/dL (6.3-8.2)
[2017-08-25 12:42] VITALS: BP 154/86
== END 2017-08-25 12:41 | disposition home or self-care (01) ==
LOC: ER 10:31
DX: K64.9 Unspecified hemorrhoids (principal); R53.1 Weakness; F17.210 Nicotine dependence, cigarettes, uncomplicated; J44.9 Chronic obstructive pulmonary disease, unspecified; Z90.49 Acquired absence of other specified parts of digestive tract; Z90.710 Acquired absence of both cervix and uterus
CPT/HCPCS: 36415; 80053; 85025; 99283

== ENCOUNTER → 2017-12-21 | Outpatient (CLI) | payer MEDICARE, OTHER ==
[2017-12-21 09:36] LABS: ABSOLUTE BASOPHILS # (AUTO) 0.1 10^3/uL (0.0-0.2); ABSOLUTE EOSINOPHILS # (AUTO) 0.3 10^3/uL (0.0-0.6); ABSOLUTE LYMPHOCYTES (AUTO) 2.2 10^3/uL (0.5-4.7); ABSOLUTE MONOCYTES (AUTO) 0.4 10^3/uL (0.1-1.4); ABSOLUTE NEUT (AUTO) 4.2 10^3/uL (1.7-8.2); BASOPHILS % (AUTO) 1.4 % (0-2); EOSINOPHILS % (AUTO) 4.4 % (0-6); HEMOGLOBIN 12.8 g/dL (12.0-15.5); MEAN CORPUSCULAR HEMOGLOBIN 28.5 pg (27.0-33.4); MEAN CORPUSCULAR HGB CONC 33.8 g/dL (32.0-36.0); MEAN CORPUSCULAR VOLUME 84 fl (80-97); MONOCYTES % (AUTO) 6.2 % (3-13); PLATELET COUNT 282 10^3/uL (150-450); RED CELL DISTRIBUTION WIDTH 14.5 % (11.5-14.0); TOTAL CELLS COUNTED % (AUTO) 100 %; WHITE BLOOD COUNT 7.2 10^3/uL (4.0-10.5)
[2017-12-21 09:55] LABS: ALANINE AMINOTRANSFERASE 19 U/L (9-52); ALBUMIN 3.8 g/dL (3.5-5.0); ALKALINE PHOSPHATASE 94 U/L (38-126); ANION GAP 10 (5-19); ASPARTATE AMINO TRANSFERASE 16 U/L (14-36); BILIRUBIN,DIRECT 0.2 mg/dL (0.0-0.4); BILIRUBIN,TOTAL 0.5 mg/dL (0.2-1.3); BLOOD UREA NITROGEN 11 mg/dL (7-20); CALCIUM 9.5 mg/dL (8.4-10.2); CARBON DIOXIDE 29 mmol/L (22-30); CHLORIDE 107 mmol/L (98-107); CHOLESTEROL 205.28 mg/dL (0-200); GLUCOSE 91 mg/dL (75-110); POTASSIUM 4.3 mmol/L (3.6-5.0); SODIUM 145.8 mmol/L (137-145); TOTAL PROTEIN 6.4 g/dL (6.3-8.2); TRIGLYCERIDES 52 mg/dL (<150)
[2017-12-21 10:06] LABS: DIRECT LDL 124 mg/dL (<100)
== END ==
LOC: OD 08:46
PROVIDERS: ATTEND Internal Medicine
DX: D64.9 Anemia, unspecified (principal); E78.5 Hyperlipidemia, unspecified; R10.9 Unspecified abdominal pain; E03.9 Hypothyroidism, unspecified; E55.9 Vitamin D deficiency, unspecified
CPT/HCPCS: 36415; 80053; 80061; 82306; 84443; 85025

== ENCOUNTER → 2018-02-02 | Outpatient (CLI) | payer MEDICARE, OTHER ==
--- NOTE | 2018-02-02 10:38 | WOMENS IMAGING REPORT ---
EXAM DESCRIPTION: BONE DENSITY HIP/SPINE COMPLETED DATE/TIME: 02/02/2018 9:48 am REASON FOR STUDY: OSTEOPOROSIS Z12.31 ENCNTR SCREEN MAMMOGRAM FOR MALIGNANT NEOPLASM OF ARIS M81.0 AGE-RELATED OSTEOPOROSIS W/O CURRENT PATHOLOGICAL FRAC COMPARISON: 2013 TECHNIQUE: Dual-Energy X-ray Absorptiometry (DEXA) of the AP Spine and Hip. LIMITATIONS: None. FINDINGS: LUMBAR SPINE: The bone mineral density (BMD) measured from L1-L4 in the AP projection correlates with a T-score of -0.5, previously -1.0, which is normal as defined by the World Health Organization. HIP: The bone mineral density (BMD) measured in the left hip correlates with a T-score of -1.0, previously 0.1, which is osteopenia as defined by the World Health Organization. IMPRESSION: 1. LUMBAR SPINE: NORMAL. 2. HIP: OSTEOPENIA. COMMENT: The World Health Organization defines low BMD as follows: T-score: Normal: Greater than -1.0 Osteopenia: Between -1.0 and -2.5 Osteoporosis: Less than -2.5 without fractures Established osteoporosis: Less than -2.5 with fractures In general, you may wish to consider: Diagnosis Treatment Follow-up DEXA Normal BMD Prevention 2-3 years Osteopenia Prevention/Therapy 1-2 years Osteoporosis Therapy Yearly TECHNICAL DOCUMENTATION: JOB ID: [id number]- All Rights Reserved Reading location - IP/workstation name: [email or web address]
--- NOTE | 2018-02-02 11:11 | WOMENS IMAGING REPORT ---
EXAM DESCRIPTION: BILAT SCREENING MAMMO W/CAD COMPLETED DATE/TIME: 02/02/2018 9:48 am REASON FOR STUDY: SCREENING MAMMO Z12.31 ENCNTR SCREEN MAMMOGRAM FOR MALIGNANT NEOPLASM OF ARIS M81. 0 AGE-RELATED OSTEOPOROSIS W/O CURRENT PATHOLOGICAL FRAC COMPARISON: None. TECHNIQUE: Standard craniocaudal and mediolateral oblique views of each breast recorded using digita l acquisition. LIMITATIONS: None. FINDINGS: No masses, calcifications or architectural distortion. No areas of suspicion. Read with the assistance of CAD. .[facility] - R2 Cenova Version 1.3 .[facility] - R2 Cenova Version 1.[address] - R2 Cenova Version 2.4 .[facility] [place] - R2 Cenova Version 2.4 .[facility] - R2 Orientation And Mobility Instructor Version 9.2 IMPRESSION: NORMAL MAMMOGRAM. BIRADS 1. BREAST DENSITY: b. There are scattered areas of fibroglandular density. BIRAD: 1 NEGATIVE RECOMMENDATION: ROUTINE SCREENING COMMENT: The patient has been notified of the results by letter per MQSA requirements. Additional no tification policies are in place for contacting patient with suspicious or incomplete findings. Quality ID #225: The [employer] recommends an annual screening mammogram for women aged 40 years or over. This facility utilizes a reminder system to ensure that all patients receive reminder letters, and/or direct phone calls for appointments. This includes reminders for routine scr eening mammograms, diagnostic mammograms, or other Breast Imaging Interventions when appropriate. Th is patient will be placed in the appropriate reminder system. The [employer] (ACR) has developed recommendations for screening MRI of the breast s in certain patient populations, to be used in conjunction with mammography. Breast MRI surveillanc e may be appropriate for women with more than 20% lifetime risk of developing breast cancer as deter mined by genetic testing, significant family history of the disease, or history of mantle radiation f or Hodgkins Disease. ACR Practice Guidelines 2008. TECHNICAL DOCUMENTATION: FINDING NUMBER: (1) ASSESSMENT: (1) JOB ID: [id number] [employer]- All Rights Reserved Reading location - IP/workstation name: [email or web address]
== END ==
LOC: WI 09:19
PROVIDERS: ATTEND Internal Medicine
DX: Z12.31 Encounter for screening mammogram for malignant neoplasm of breast (principal); M81.0 Age-related osteoporosis without current pathological fracture
CPT/HCPCS: 77067; 77080

== ENCOUNTER → 2018-11-05 | Outpatient (CLI) | payer MEDICARE ==
--- NOTE | 2018-11-05 16:36 | RADIOLOGY REPORT (SQ) ---
EXAM DESCRIPTION: CAROTID DOPPLER COMPLETED DATE/TIME: 11/05/2018 2:55 pm REASON FOR STUDY: BRUIT R09.89 OTH SYMPTOMS AND SIGNS INVOLVING THE CIRC AND RESP SY COMPARISON: None. TECHNIQUE: Grayscale ultrasound, Doppler velocity and spectra, and color Doppler images acquired of the extra-cranial carotid and vertebral arteries. Images stored on PACS. LIMITATIONS: None. FINDINGS: RIGHT CAROTID CCA Velocities: Within normal limits. Right common carotid artery peak systolic velocity 1.4 m/sec ICA Velocities Peak systolic 0.52 m/s. End diastolic 0.21 m/s. Proximal ICA/CCA peak systolic ratio normal. There is mixed calcific and noncalcific plaque at the right carotid bifurcation. Immediately distal to the shadowing plaque, ICA velocities suggest against flow significant stenosis. Remainder of the cervical ICA is tortuous. Right external carotid artery peak systolic velocity 2 m/sec, correlating with 50 to 69% stenosis LEFT CAROTID CCA Velocities: Within normal limits. Left common carotid artery peak systolic velocity 1.1 m/sec ICA Velocities Peak systolic 0.86 m/s. End diastolic 0.27 m/s. Proximal ICA/CCA peak systolic ratio normal. No significant plaque at the origin of the left ICA. Normal velocities, no flow significant stenosis of the left ICA. There is calcific plaque at the left carotid bifurcation causing a ECA stenosis, e xternal carotid artery peak systolic velocity 2.3 m/sec correlates with 50 to 69% narrowing. VERTEBRAL ARTERIES: Antegrade flow. Normal waveforms. SUBCLAVIAN ARTERIES: Not evaluated OTHER: No other significant finding. IMPRESSION: No flow significant stenosis of the proximal right or left internal carotid arteries at the bifurcations. There is calcific plaque and elevated velocities in the external carotid arteries bilaterally, sugges ting 50 to 69% ECA stenosis COMMENT: Quality ID #195: Velocity criteria are extrapolated from the diameter data as defined by t he Society of Radiologists in Ultrasound Consensus Conference. Radiology 2003: 229; 340-346. TECHNICAL DOCUMENTATION: JOB ID: [id number]- All Rights Reserved Reading location - IP/workstation name: [facility]
== END ==
LOC: SP 13:17
PROVIDERS: ATTEND Internal Medicine
DX: R09.89 Other specified symptoms and signs involving the circulatory and respiratory systems (principal)
CPT/HCPCS: 93880

== ENCOUNTER → 2019-01-30 | Outpatient (CLI) | payer MEDICARE ==
[2019-01-30 09:56] LABS: ALBUMIN 3.8 g/dL (3.5-5.0); ALKALINE PHOSPHATASE 104 U/L (38-126); ANION GAP 7 (5-19); ASPARTATE AMINO TRANSFERASE 15 U/L (14-36); BILIRUBIN,DIRECT 0.2 mg/dL (0.0-0.4); BILIRUBIN,TOTAL 0.4 mg/dL (0.2-1.3); BLOOD UREA NITROGEN 10 mg/dL (7-20); CALCIUM 9.4 mg/dL (8.4-10.2); CARBON DIOXIDE 28 mmol/L (22-30); CHLORIDE 105 mmol/L (98-107); CHOLESTEROL 187.32 mg/dL (0-200); GLUCOSE 91 mg/dL (75-110); POTASSIUM 4.5 mmol/L (3.6-5.0); TOTAL PROTEIN 6.5 g/dL (6.3-8.2); TRIGLYCERIDES 47 mg/dL (<150)
[2019-01-30 10:08] LABS: DIRECT LDL 130 mg/dL (<100)
== END ==
LOC: OD 08:26
PROVIDERS: ATTEND Family Medicine
DX: E78.2 Mixed hyperlipidemia (principal); E55.9 Vitamin D deficiency, unspecified
CPT/HCPCS: 36415; 80053; 80061; 82306

== ENCOUNTER 2019-04-11 09:05 | Emergency (ER) | payer MEDICARE ==
[2019-04-11] MEDS ORDERED: PANTOPRAZOLE SODIUM 40 MG VIAL IV PRN (09:41)
--- NOTE | 2019-04-11 09:43 | ER Document Report ---
ED Medical Screen (RME) - General Chief Complaint: Rectal Bleeding Stated Complaint: HEMORRHOIDS Time Seen by Provider: 04/11/19 09:34 Primary Care Provider: DONNA TALLEY MD [Primary Care Provider] - Follow up as needed TRAVEL OUTSIDE OF THE [place] IN LAST 30 DAYS: No - HPI Notes: 04/11/19 09:42 78-year-old female with a history of GI bleeds presents to the emergency room w ith complaints of "Jell-O-like substance" for stool the last 3 days, dizziness that has become progressively worse. Patient states that she does see Dr. Castillo, carbonation equipment operator but she was unable to be seen by him today. Recently had a colonoscopy within the last 5 years. Patient states she has not had a bowel movement in the last couple days. Reports flatus. Denies being on blood thinners. Patient does not take a PPI. I have greeted and performed a rapid initial assessment of this patient. A comprehensive ED assessment and evaluation of the patient, analysis of test results and completion of the medical decision making process will be conducted by additional ED providers. PHYSICAL EXAMINATION: GENERAL: Well-appearing, well-nourished and in no acute distress. HEAD: Atraumatic, normocephalic. EYES: Pupils equal round extraocular movements intact, conjunctiva are normal. NECK: Normal range of motion LUNGS: No respiratory distress Musculoskeletal: Normal range of motion NEUROLOGICAL: Normal speech, normal gait. PSYCH: Normal mood, normal affect. SKIN: Warm, Dry, normal turgor, no rashes or lesions noted. - Related Data Allergies/Adverse Reactions: No Known Allergies Allergy (Verified 04/11/19 09:35) Past Medical History - Social History Chew tobacco use (# tins/day): No Frequency of alcohol use: None Drug Abuse: None Pulmonary Medical History: Reports: Hx COPD Neurological Medical History: Denies: Hx Seizures Renal/ Medical History: Denies: Hx Peritoneal Dialysis Past Surgical History: Reports: Hx Cholecystectomy, Hx Hysterectomy, Hx Orthopedic Surgery - Right knee Physical Exam - Vital signs Vitals: Temp Pulse Resp BP Pulse Ox 98.2 F 66 18 137/54 H 97 04/11/19 09:15 04/11/19 09:15 04/11/19 09:15 04/11/19 09:15 04/11/19 09:15 Course - Vital Signs Vital signs: Temp Pulse Resp BP Pulse Ox 98.2 F 66 18 137/54 H 97 04/11/19 09:35 04/11/19 09:15 04/11/19 09:35 04/11/19 09:15 04/11/19 09:35 Doctor's Discharge - Discharge Referrals: DONNA TALLEY MD [Primary Care Provider] - Follow up as needed
--- NOTE | 2019-04-11 10:14 | RADIOLOGY REPORT (SQ) ---
EXAM DESCRIPTION: CHEST SINGLE VIEW COMPLETED DATE/TIME: 04/11/2019 10:05 am REASON FOR STUDY: dizziness COMPARISON: 04/26/2014 EXAM PARAMETERS: NUMBER OF VIEWS: One view. TECHNIQUE: Single frontal radiographic view of the chest acquired. RADIATION DOSE: NA LIMITATIONS: None. FINDINGS: LUNGS AND PLEURA: Minute ill-defined right basilar opacity. No dense consolidation. No p leural effusion. No pneumothorax pre MEDIASTINUM AND HILAR STRUCTURES: No masses. Contour normal. HEART AND VASCULAR STRUCTURES: Enlarged cardiac silhouette. Aortic atherosclerosis. BONES: No acute findings. HARDWARE: None in the chest. OTHER: No other significant finding. IMPRESSION: Minimal ill-defined right basilar opacities possibly atelectasis/scarring or mild airsp david disease. TECHNICAL DOCUMENTATION: JOB ID: [id number] [employer]- All Rights Reserved Reading location - IP/workstation name: [email or web address]
[2019-04-11 10:26] LABS: INTERNATIONAL RATION (INR) 1.06; PROTHROMBIN TIME 13.8 SEC (11.4-15.4)
[2019-04-11 10:27] LABS: PARTIAL THROMBOPLASTIN TIME 32.6 SEC (23.5-35.8)
[2019-04-11 10:28] LABS: ABSOLUTE BASOPHILS # (AUTO) 0.2 10^3/uL (0.0-0.2); ABSOLUTE EOSINOPHILS # (AUTO) 0.2 10^3/uL (0.0-0.6); ABSOLUTE LYMPHOCYTES (AUTO) 1.8 10^3/uL (0.5-4.7); ABSOLUTE MONOCYTES (AUTO) 0.6 10^3/uL (0.1-1.4); BASOPHILS % (AUTO) 1.9 % (0-2); EOSINOPHILS % (AUTO) 2.8 % (0-6); HEMATOCRIT 25.7 % (36.0-47.0); LYMPHOCYTES % (AUTO) 23.1 % (13-45); MONOCYTES % (AUTO) 7.7 % (3-13); PLATELET COUNT 358 10^3/uL (150-450); RED BLOOD COUNT 4.15 10^6/uL (3.72-5.28); RED CELL DISTRIBUTION WIDTH 18.5 % (11.5-14.0); SEGMENTED NEUTROPHILS % (AUTO) 64.5 % (42-78); TOTAL CELLS COUNTED % (AUTO) 100 %; WHITE BLOOD COUNT 7.7 10^3/uL (4.0-10.5)
[2019-04-11 10:29] LABS: APPEARANCE,URINE SLIGHTLY-CLOUDY; BILIRUBIN,URINE NEGATIVE (NEGATIVE); COLOR,URINE YELLOW; GLUCOSE, URINE NEGATIVE (NEGATIVE); KETONES,URINE NEGATIVE (NEGATIVE); LEUKOCYTE ESTERASE,URINE SMALL (NEGATIVE); NITRITE,URINE NEGATIVE (NEGATIVE); PROTEIN,URINE 30 mg/dL (NEGATIVE); URINE SPECIFIC GRAVITY 1.011; UROBILINOGEN,URINE NEGATIVE mg/dL (<2.0)
[2019-04-11 10:47] LABS: ALBUMIN 3.9 g/dL (3.5-5.0); ALKALINE PHOSPHATASE 91 U/L (38-126); ANION GAP 5 (5-19); ASPARTATE AMINO TRANSFERASE 22 U/L (14-36); BILIRUBIN,DIRECT 0.1 mg/dL (0.0-0.4); BILIRUBIN,TOTAL 0.5 mg/dL (0.2-1.3); BLOOD UREA NITROGEN 7 mg/dL (7-20); CALCIUM 9.6 mg/dL (8.4-10.2); CARBON DIOXIDE 27 mmol/L (22-30); CHLORIDE 109 mmol/L (98-107); GLUCOSE 95 mg/dL (75-110); POTASSIUM 4.1 mmol/L (3.6-5.0); TOTAL PROTEIN 6.6 g/dL (6.3-8.2)
[2019-04-11 11:05] LABS: HEMOGLOBIN 7.5 g/dL (12.0-15.5)
[2019-04-11 11:20] LABS: ANISOCYTOSIS 2+; HYPOCHROMASIA 3+; POIKILOCYTOSIS 1+; POLYCHROMASIA SLIGHT
[2019-04-11 11:21] LABS: OVALOCYTES 1+; PLATELET COMMENT ADEQUATE; ROULEAUX SLIGHT
[2019-04-11 11:22] LABS: MEAN CORPUSCULAR VOLUME 62 fl (80-97)
[2019-04-11] MEDS ORDERED: NORMAL SALINE 250 ML IV PRN (11:49)
[2019-04-11] MEDS ORDERED: ACETAMINOPHEN 325 MG TABLET PO ONE (11:50)
--- NOTE | 2019-04-11 11:59 | ER Document Report ---
ED General - General Chief Complaint: Rectal Bleeding Stated Complaint: HEMORRHOIDS Time Seen by Provider: 04/11/19 09:34 Primary Care Provider: DONNA TALLEY MD [Primary Care Provider] - Follow up as needed TRAVEL OUTSIDE OF THE [place] IN LAST 30 DAYS: No - HPI Notes: Patient is a 78-year-old female with a known history of lower GI bleeding who presents emergency department for evaluation of same. She states that over the last 3 days she has had multiple episodes of bloody stools. She states it appears "like Jell-O" and anywhere from pink to dark red. She states she does have some cramping intermittently, seems to be diffuse, and she was up multiple times in the night having a bloody bowel movements. She denies any associated fevers or chills. No nausea or vomiting. She denied any blood thinners. She is followed with Dr. Castillo for some time, last saw him about a year ago. - Related Data Allergies/Adverse Reactions: No Known Allergies Allergy (Verified 04/11/19 09:35) Past Medical History - Social History Smoking Status: Current Every Day Smoker Chew tobacco use (# tins/day): No Frequency of alcohol use: None Drug Abuse: None Family History: Reviewed & Not Pertinent Patient has suicidal ideation: No Patient has homicidal ideation: No Pulmonary Medical History: Reports: Hx COPD Neurological Medical History: Denies: Hx Seizures Renal/ Medical History: Denies: Hx Peritoneal Dialysis GI Medical History: Reports: Hx Colonoscopy Past Surgical History: Reports: Hx Cholecystectomy, Hx Hysterectomy, Hx Orthopedic Surgery - Right knee - Immunizations Hx Pneumococcal Vaccination: 05/01/15 Review of Systems - Review of Systems Constitutional: No symptoms reported EENT: No symptoms reported Cardiovascular: No symptoms reported Respiratory: No symptoms reported Gastrointestinal: See HPI Genitourinary: No symptoms reported Musculoskeletal: No symptoms reported Skin: No symptoms reported Neurological/Psychological: No symptoms reported Physical Exam - Vital signs Vitals: Temp Pulse Resp BP Pulse Ox 98.2 F 66 18 137/54 H 97 04/11/19 09:15 04/11/19 09:15 04/11/19 09:15 04/11/19 09:15 04/11/19 09:15 - Notes Notes: Vital signs reviewed, please refer to chart. Head is normocephalic, atraumatic. Pupils equal round, reactive to light. Neck is supple without meningismus. Heart is regular rate and rhythm. Lungs are clear to auscultation bilaterally. Abdomen is soft, diffusely tender without rebound or guarding, normoactive bowel sounds throughout. Extremities without cyanosis, clubbing. Posterior calves are nontender. Peripheral pulses are equal. Skin is warm and dry. Patient is awake, alert, neurological exam is nonfocal. Course - Re-evaluation Re-evalutation: 04/11/19 11:57 Patient presents the emergency department for evaluation. On arrival she had blood work placed as through triage. Her hemoglobin is found to be 7.5. She states that she not have any any active bleeding, telling when she sits down to move her bowels. The patient prefaces this entire interview by stating she does not want to stay in the hospital. she definitely needs blood. I am inclined to perform imaging as well, particularly given her diffuse abdominal tenderness. She is agreeable to this, but still states she will sign out AGAINST MEDICAL ADVICE after receiving blood. I will go back and speak to the patient in regards to this decision, otherwise we will continue to monitor. 04/11/19 16:18 Patient stayed for some time here in the emergency department, was in the middle of receiving her first unit of blood, when she was unable to reach her . She wants to leave AGAINST MEDICAL ADVICE. I spoke to Dr. Talley about this patient. She is aware of her, aware of my concern with this mass, as well as the colitis, anemia, and the fact that she is leaving AGAINST MEDICAL ADVICE. She will contact her and follow-up closely. Case management also saw the patient, we are in the process of setting up outpatient CT-guided biopsy of this abdominal mass. Patient understands that if at any point she changes her mind she can come to the emergency department for further evaluation and treatment. Otherwise, the patient is currently stable, and is leaving AGAINST MEDICAL ADVICE. 04/11/19 16:19 Please note patient was already aware of the left sided kidney stone. - Vital Signs Vital signs: Temp Pulse Resp BP Pulse Ox 98.5 F 66 12 133/54 H 97 04/11/19 14:10 04/11/19 09:15 04/11/19 13:19 04/11/19 13:19 04/11/19 09:35 - Laboratory Result Diagrams: 04/11/19 09:30 04/11/19 09:30 Laboratory results interpreted by me: 04/11/19 04/11/19 04/11/19 09:30 09:30 09:30 Hgb 7.5 L Hct 25.7 L MCV 62 L MCH 18.0 L MCHC 29.0 L RDW 18.5 H Chloride 109 H Urine Protein 30 H Ur Leukocyte Esterase SMALL H Crossmatch 04/11/19 11:57 Hgb Hct MCV MCH MCHC RDW Chloride Urine Protein Ur Leukocyte Esterase Crossmatch See Detail - Diagnostic Test Radiology reviewed: Reports reviewed Radiology results interpreted by me: 04/11/19 16:19 Chest X-Ray 04/11/19 09:39 IMPRESSION: Minimal ill-defined right basilar opacities possibly atelectasis/scarring or mild airspace disease. Abdomen/Pelvis CT 04/11/19 11:50 IMPRESSION: 1. There is inflammatory thickening and fat stranding about the descending colon (series 601, image 31). This appears to be unrelated to sigmoid diverticula which are present more distally. Findings are consistent with nonspecific infectious, inflammatory, or ischemic colitis. 2. There is a 5 mm obstructive calculus in the mid left ureter with mild associated left hydronephrosis and hydroureter. Additional tiny nonobstructive calculi present bilaterally. 3. There is a mass in the anterior right hemiabdomen measuring 3.4 x 3.2 x 3.7 cm (series 3, image 55, series 602, image 41), concerning for malignancy. This is of uncertain origin and possibly within the small bowel mesentery or arising from the peritoneum. This may be characterized by PET-CT for metabolic activity and likely amenable to percutaneous CT-guided biopsy given size and location. 4. Chronic incidental and postoperative findings as detailed above. - EKG Interpretation by Me Additional EKG results interpreted by me: 04/11/19 11:59 Sinus mechanism with a rate of 61 bpm, PAC noted. Normal axis and intervals, no acute ST changes concerning for ischemia or infarction. Discharge - Discharge Clinical Impression: Lower GI bleed, Anemia, Abdominal mass, Colitis Condition: Stable Disposition: AGAINST MEDICAL ADVICE Instructions: Anemia ([facility]), Rectal Bleeding, Unclear Cause ([facility]) Additional Instructions: You have elected to leave AGAINST MEDICAL ADVICE. Please take the antibiotics as prescribed until they are gone. Please come back at any time if you change your mind regarding admission. There is also a mass found on your CT scan. Your primary care doctor will be contacting you in regards to setting up testing, as well as our case management team. If you change her mind at any time regarding any issues, or certainly if you have any worsening, please return immediately to the emergency department for evaluation. Prescriptions: Ciprofloxacin HCl [Cipro 500 mg Tablet] 500 mg PO BID #14 tablet Metronidazole [Flagyl 500 mg Tablet] 500 mg PO Q6H #28 tablet Referrals: DONNA TALLEY MD [Primary Care Provider] - Follow up as needed
--- NOTE | 2019-04-11 12:56 | RADIOLOGY REPORT (SQ) ---
EXAM DESCRIPTION: CT ABD/PELVIS NO ORAL OR IV COMPLETED DATE/TIME: 04/11/2019 12:35 pm REASON FOR STUDY: abdominal tenderness, rectal bleeding COMPARISON: None. TECHNIQUE: CT scan of the abdomen and pelvis performed without intravenous or oral contrast. Images reviewed with lung, soft tissue, and bone windows. Reconstructed coronal and sagittal MPR images revi ewed. All images stored on PACS. All CT scanners at this facility use dose modulation, iterative reconstruction, and/or weight based d osing when appropriate to reduce radiation dose to as low as reasonably achievable (ALARA). [facility]: Dose Right [facility]: CareDose [facility]: Dose Right [facility]: Teradose 4D [facility]: [employer] RADIATION DOSE: CT Rad equipment meets quality standard of care and radiation dose reduction techniq ues were employed. CTDIvol: 10.0 mGy. DLP: 518 mGy-cm.mGy. LIMITATIONS: None. FINDINGS: LOWER CHEST: No significant findings. No nodules or infiltrates. NON-CONTRASTED LIVER, SPLEEN, ADRENALS: Evaluation limited by lack of IV contrast. No identified sign ificant masses. PANCREAS: No masses. No peripancreatic inflammatory changes. GALLBLADDER: Surgically absent. RIGHT KIDNEY AND URETER: No suspicious masses. Assessment limited by lack of IV contrast. Tiny nono bstructive calculus of the superior pole. No hydronephrosis or hydroureter. LEFT KIDNEY AND URETER: No suspicious masses. Assessment limited by lack of IV contrast. There is a 5 mm obstructive calculus in the mid left ureter with mild associated left hydronephrosis and hydrou reter. Additional tiny nonobstructive calculus of the inferior pole. AORTA AND RETROPERITONEUM: No aneurysm. No retroperitoneal masses or adenopathy. Calcific atheroscle rosis of the abdominal aorta and branch vessels. BOWEL AND PERITONEAL CAVITY: There is inflammatory thickening and fat stranding about the descending colon (series 601, image 31). This appears to be unrelated to sigmoid diverticula which are present more distally. There is a mass in the anterior right hemiabdomen measuring 3.4 x 3.2 x 3.7 cm (serie s 3, image 55, series 602, image 41). APPENDIX: Normal. PELVIS, BLADDER, AND ABDOMINAL WALL:No abnormal masses. Status posthysterectomy. No free fluid. Ramin dder normal. BONES: No significant findings. OTHER: No other significant finding. IMPRESSION: 1. There is inflammatory thickening and fat stranding about the descending colon (series 601, image 31). This appears to be unrelated to sigmoid diverticula which are present more distally . Findings are consistent with nonspecific infectious, inflammatory, or ischemic colitis. 2. There is a 5 mm obstructive calculus in the mid left ureter with mild associated left hydronephros is and hydroureter. Additional tiny nonobstructive calculi present bilaterally. 3. There is a mass in the anterior right hemiabdomen measuring 3.4 x 3.2 x 3.7 cm (series 3, image 55 , series 602, image 41), concerning for malignancy. This is of uncertain origin and possibly within the small bowel mesentery or arising from the peritoneum. This may be characterized by PET-CT for me tabolic activity and likely amenable to percutaneous CT-guided biopsy given size and location. 4. Chronic incidental and postoperative findings as detailed above. COMMENT: Quality ID # 436: Final reports with documentation of one or more dose reduction techniques (e.g., Automated exposure control, adjustment of the mA and/or kV according to patient size, use of iterative reconstruction technique) TECHNICAL DOCUMENTATION: JOB ID: [id number] [employer]- All Rights Reserved Reading location - IP/workstation name: [email or web address]
[2019-04-11 13:22] VITALS: BP 133/54
--- NOTE | 2019-04-11 17:03 | EKG REPORT ---
SEVERITY:- OTHERWISE NORMAL ECG - SINUS RHYTHM ATRIAL PREMATURE COMPLEX : Confirmed by: Velasquez Blakc MD 11-Apr-2019 17:02:58
[2019-04-12 13:44] LABS: PATH REVIEW PATHOLOGIST REVIEWED
== END 2019-04-11 16:24 | disposition left against medical advice (07) ==
LOC: ER 09:05
DX: K52.9 Noninfective gastroenteritis and colitis, unspecified (principal); D64.9 Anemia, unspecified; R19.00 Intra-abdominal and pelvic swelling, mass and lump, unspecified site; K92.1 Melena; N13.2 Hydronephrosis with renal and ureteral calculous obstruction; R10.817 Generalized abdominal tenderness; I49.1 Atrial premature depolarization; F17.200 Nicotine dependence, unspecified, uncomplicated; Z90.49 Acquired absence of other specified parts of digestive tract; Z90.710 Acquired absence of both cervix and uterus; Z53.20 Procedure and treatment not carried out because of patient's decision for unspecified reasons
CPT/HCPCS: 93005; 86900; 86901; 36415; 36430; 86850; 85025; 85610; 85730; 80053; 81001; 86920; 71045; 74176; 93010; P9016; A9270; 99285

== ENCOUNTER → 2019-06-10 | Outpatient (CLI) | payer MEDICARE ==
--- NOTE | 2019-06-10 13:49 | RADIOLOGY REPORT (SQ) ---
EXAM DESCRIPTION: CT CHEST WITH; CT ABD/PELVIS WITH IV ONLY COMPLETED DATE/TIME: 06/10/2019 1:04 pm REASON FOR STUDY: ABDOMINAL MASS (R19.00) R19.00 INTRA-ABD AND PELVIC SWELLING, MASS AND LUMP, UNSP SI COMPARISON: 04/11/2019 CT abdomen pelvis CONTRAST TYPE AND DOSE: contrast/concentration: Isovue 350.00 mg/ml; Total Contrast Delivered: 78.0 ml; Total Saline Delivered: 67.0 ml RENAL FUNCTION: Creatinine 0.6 TECHNIQUE: CT scan of the chest performed using helical scanning technique with dynamic intravenous contrast injection. Images reviewed with lung, soft tissue and bone windows. Reconstructed coronal a nd sagittal MPR images reviewed. All images stored on PACS. CT scan of the abdomen and pelvis performed with intravenous and without oral contrastusing helical s naun technique with dynamic intravenous contrast injection. Images reviewed with lung, soft tissu e and bone windows. Reconstructed coronal and sagittal MPR images reviewed. Delayed images for eval uation of the urinary system also acquired and evaluated. All images stored on PACS. All CT scanners at this facility use dose modulation, iterative reconstruction, and/or weight based d osing when appropriate to reduce radiation dose to as low as reasonably achievable (ALARA). [facility]: Dose Right [facility]: CareDose [facility]: Dose Right [facility]: Teradose 4D [facility]: [employer] RADIATION DOSE: CT Rad equipment meets quality standard of care and radiation dose reduction techniq ues were employed. CTDIvol: 5.5 - 6.9 mGy. DLP: 1196 mGy-cm. . LIMITATIONS: None. FINDINGS: CHEST: LUNGS AND PLEURA: No opacities, nodules, masses. No pneumothorax. No effusions. HILAR AND MEDIASTINAL STRUCTURES: No identified masses or abnormal nodes. HEART AND VASCULAR STRUCTURES: No aneurysm or dissection. No central pulmonary emboli. No pericardi al effusion. HARDWARE: None. THYROID AND OTHER SOFT TISSUES: No masses. No adenopathy. BONES: No significant finding. OTHER: No other significant finding. ABDOMEN AND PELVIS: LIVER: Normal size. No masses. No dilated ducts. SPLEEN: Normal size. No focal lesions. PANCREAS: No masses. No significant calcifications. No adjacent inflammation or peripancreatic fluid collections. Pancreatic duct not dilated. GALLBLADDER: Surgically absent ADRENAL GLANDS: No significant masses or asymmetry. RIGHT KIDNEY AND URETER: No solid masses. 2 mm right upper pole intrarenal nonobstructive stone. No hydronephrosis or hydroureter. LEFT KIDNEY AND URETER: No solid masses. No significant calcification. No hydronephrosis or hydrouret er. AORTA AND VESSELS: No aneurysm. No dissection. Renal arteries, SMA, celiac without stenosis. RETROPERITONEUM: No retroperitoneal adenopathy, hemorrhage or masses. BOWEL AND PERITONEAL CAVITY: In the right lower quadrant mesenteric fat, a 3.4 x 2.8 cm mass is prese nt on axial image 46 and coronal image 38. This has avid contrast enhancement prominent feeding and draining vessels, indicating that this is a hypervascular mass. This is adjacent to right lower quad rant mesenteric large vessels. This could represent a hypervascular metastatic lesion from patient's remote prior uterine cancer. A primary hypervascular mesenteric mass is possible. No other mesenteric hypervascular nodules are noted. No free intraperitoneal air or fluid. Gastroin testinal tract unremarkable APPENDIX: Surgically absent ABDOMINAL WALL: No masses. No hernias. PELVIS: No mass or free fluid. Normal bladder. Post hysterectomy BONES: No significant or acute findings. OTHER: No other significant finding. IMPRESSION: Unremarkable CT chest 3.4 x 2.8 cm hypervascular mass the right lower quadrant mesentery with prominent feeding and drainin g vessels. This could represent a hypervascular metastatic lesion from patient's remote prior uterin e cancer. A primary hypervascular mesenteric mass is possible. TECHNICAL DOCUMENTATION: JOB ID: [id number] Quality ID # [id number]: Final reports with documentation of one or more dose reduction techniques (e.g., Au tomated exposure control, adjustment of the mA and/or kV according to patient size, use of iterative reconstruction technique) 2010 [employer]- All Rights Reserved Reading location - IP/workstation name: [email or web address]
== END ==
LOC: RAD 12:12
PROVIDERS: ATTEND Internal Medicine Hematology & Oncology
DX: R19.03 Right lower quadrant abdominal swelling, mass and lump (principal)
CPT/HCPCS: 71260; 74177; 82565

== ENCOUNTER 2020-04-30 15:36 | Inpatient (IN) | payer MEDICARE ==
--- NOTE | 2020-04-30 17:10 | ER Document Report ---
ED Medical Screen (RME) - General Stated Complaint: NAUSEA/VOMITING/DIAHERRA Time Seen by Provider: 04/30/20 16:58 Primary Care Provider: SONIA SAHU MD [Primary Care Provider] - Follow up as needed Mode of Arrival: Wheelchair Information source: Patient, Relative Notes: Patient is a 79-year-old male brought in emergency room by her son with complaint of nausea vomiting and diarrhea started this morning. Patient states she has had multiple bouts of vomiting and multiple bouts of watery diarrhea. She also has had some diffuse abdominal pain. She does state that she has had a hysterectomy, cholecystectomy and an appendectomy. She denies any other medical problems with exception of hypertension. And hypercholesterolemia. Son states that patient is usually very active up and walking around does not use a cane or walker or crutches and today she is not really get out of her chair. She states that she was also told that her blood pressure went low as well from her diarrhea and vomiting. Is why she is here to be evaluated the emergency room. Patient's vital signs did not capture and they are as follows temp of 97.6, heart rate 68, respiratory rate of 18, blood pressure 137/50 and an O2 sat of 95% room air. EMS brought her in and they did a rapid Covid test which turned out negative. Physical examination shows patient to be a frail-appearing 79-year-old female who is in no apparent distress on examination today however she does appear ill. Cardiac: Patient has a cardiac rate of 60 bpm on monitor and no auscultated murmurs. Lungs: Bilateral breath sounds decreased throughout no rhonchi rales or wheeze heard. Abdomen: Bowel sounds are present slightly hyperactive in all quadrants. And patient is diffusely tender. Emergency room tech notified me that she went to with the patient to the bathroom and she had a bowel movement and wound was collected a stool sample. She states that it is a foul-smelling diarrhea almost a dysentery type presentation. Sample was obtained. I have greeted and performed a rapid initial assessment of this patient. A comprehensive ED assessment and evaluation of the patient, analysis of test results and completion of the medical decision making process will be conducted by additional ED providers. Dictation of this chart was performed using voice recognition software; therefore, there may be some unintended grammatical errors. TRAVEL OUTSIDE OF THE [place] IN LAST 30 DAYS: No - Related Data Allergies/Adverse Reactions: No Known Allergies Allergy (Verified 04/11/19 09:35) Past Medical History Pulmonary Medical History: Reports: Hx COPD Neurological Medical History: Denies: Hx Seizures Renal/ Medical History: Denies: Hx Peritoneal Dialysis GI Medical History: Reports: Hx Colonoscopy Past Surgical History: Reports: Hx Cholecystectomy, Hx Hysterectomy, Hx Orthopedic Surgery - Right knee Doctor's Discharge - Discharge Referrals: SONIA SAHU MD [Primary Care Provider] - Follow up as needed
--- NOTE | 2020-04-30 17:44 | EKG REPORT ---
SEVERITY:- OTHERWISE NORMAL ECG - SINUS BRADYCARDIA PAC : Confirmed by: Laz Morales MD 30-Apr-2020 17:44:15
[2020-04-30 18:13] LABS: ABSOLUTE BASOPHILS # (AUTO) 0.1 10^3/uL (0.0-0.2); ABSOLUTE LYMPHOCYTES (AUTO) 1.8 10^3/uL (0.5-4.7); ABSOLUTE MONOCYTES (AUTO) 1.1 10^3/uL (0.1-1.4); ABSOLUTE NEUT (AUTO) 14.7 10^3/uL (1.7-8.2); BASOPHILS % (AUTO) 0.7 % (0-2); EOSINOPHILS % (AUTO) 0.1 % (0-6); MEAN CORPUSCULAR HEMOGLOBIN 16.3 pg (27.0-33.4); MEAN CORPUSCULAR HGB CONC 28.6 g/dL (32.0-36.0); MONOCYTES % (AUTO) 6.3 % (3-13); PLATELET COUNT 301 10^3/uL (150-450); RED BLOOD COUNT 4.38 10^6/uL (3.72-5.28); RED CELL DISTRIBUTION WIDTH 19.5 % (11.5-14.0); SEGMENTED NEUTROPHILS % (AUTO) 82.9 % (42-78); TOTAL CELLS COUNTED % (AUTO) 100 %; WHITE BLOOD COUNT 17.7 10^3/uL (4.0-10.5)
[2020-04-30 18:26] LABS: ALBUMIN 4.1 g/dL (3.5-5.0); ALKALINE PHOSPHATASE 126 U/L (38-126); ANION GAP 5 (5-19); ASPARTATE AMINO TRANSFERASE 25 U/L (14-36); BILIRUBIN,DIRECT 0.1 mg/dL (0.0-0.4); BILIRUBIN,TOTAL 0.4 mg/dL (0.2-1.3); BLOOD UREA NITROGEN 16 mg/dL (7-20); CALCIUM 9.9 mg/dL (8.4-10.2); CARBON DIOXIDE 30 mmol/L (22-30); CHLORIDE 103 mmol/L (98-107); GLUCOSE 189 mg/dL (75-110); POTASSIUM 3.8 mmol/L (3.6-5.0); TOTAL PROTEIN 6.9 g/dL (6.3-8.2)
--- NOTE | 2020-04-30 18:30 | RADIOLOGY REPORT (SQ) ---
EXAM DESCRIPTION: CHEST SINGLE VIEW IMAGES COMPLETED DATE/TIME: 04/30/2020 6:01 pm REASON FOR STUDY: cough COMPARISON: 04/11/2019 EXAM PARAMETERS: NUMBER OF VIEWS: One view. TECHNIQUE: Single frontal radiographic view of the chest acquired. RADIATION DOSE: NA LIMITATIONS: None. FINDINGS: LUNGS AND PLEURA: No opacities, masses or pneumothorax. No pleural effusion. MEDIASTINUM AND HILAR STRUCTURES: No masses. Contour normal. HEART AND VASCULAR STRUCTURES: Heart normal in size. Normal vasculature. BONES: No acute findings. HARDWARE: None in the chest. OTHER: No other significant finding. IMPRESSION: NO ACUTE RADIOGRAPHIC FINDING IN THE CHEST. TECHNICAL DOCUMENTATION: JOB ID: [id number] 2010 [employer]- All Rights Reserved Reading location - IP/workstation name: [email or web address]
--- NOTE | 2020-04-30 18:36 | RADIOLOGY REPORT (SQ) ---
EXAM DESCRIPTION: CT ABD/PELVIS NO ORAL OR IV IMAGES COMPLETED DATE/TIME: 04/30/2020 6:06 pm REASON FOR STUDY: pain COMPARISON: 04/11/2019 TECHNIQUE: CT scan of the abdomen and pelvis performed without intravenous or oral contrast. Images reviewed with lung, soft tissue, and bone windows. Reconstructed coronal and sagittal MPR images revi ewed. All images stored on PACS. All CT scanners at this facility use dose modulation, iterative reconstruction, and/or weight based d osing when appropriate to reduce radiation dose to as low as reasonably achievable (ALARA). [facility]: Dose Right [facility]: CareDose [facility]: Dose Right [facility]: Teradose 4D [facility]: [employer] RADIATION DOSE: CT Rad equipment meets quality standard of care and radiation dose reduction techniq ues were employed. CTDIvol: 6.6 mGy. DLP: 311 mGy-cm.mGy. LIMITATIONS: None. FINDINGS: LOWER CHEST: No significant findings. No nodules or infiltrates. NON-CONTRASTED LIVER, SPLEEN, ADRENALS: Evaluation limited by lack of IV contrast. No identified sign ificant masses. PANCREAS: No masses. No peripancreatic inflammatory changes. GALLBLADDER: Surgically absent. RIGHT KIDNEY AND URETER: No suspicious masses. Assessment limited by lack of IV contrast. 3 mm nono bstructing upper calyceal calculus. No hydronephrosis or hydroureter. LEFT KIDNEY AND URETER: No suspicious masses. Assessment limited by lack of IV contrast. 2 tiny int rarenal calculi are seen. 1 of these may be vascular. No hydronephrosis or hydroureter. AORTA AND RETROPERITONEUM: No aneurysm. No retroperitoneal masses or adenopathy. BOWEL AND PERITONEAL CAVITY: There is some fluid in the colon. No obvious bowel mass. Mild sigmoid diverticulosis with no associated inflammation. APPENDIX: Not identified. PELVIS, BLADDER, AND ABDOMINAL WALL:No abnormal masses. No free fluid. Bladder normal. BONES: No significant findings. OTHER: No other significant finding. IMPRESSION: 1. There are some small nonobstructing intrarenal calculi bilaterally. No ureteral sto ne or obstruction. 2. There is some fluid in the colon. Correlate for an enteritis. 3. Mild diverticulosis coli. COMMENT: Quality ID # 436: Final reports with documentation of one or more dose reduction techniques (e.g., Automated exposure control, adjustment of the mA and/or kV according to patient size, use of iterative reconstruction technique) TECHNICAL DOCUMENTATION: JOB ID: [id number] 2010 [employer] [employer]- All Rights Reserved Reading location - IP/workstation name: [email or web address]
[2020-04-30 18:37] LABS: ANISOCYTOSIS 2+; HYPOCHROMASIA 3+; OVALOCYTES 1+; PLATELET COMMENT ADEQUATE; POIKILOCYTOSIS 2+
[2020-04-30 18:38] LABS: MEAN CORPUSCULAR VOLUME 57 fl (80-97)
[2020-04-30 18:41] LABS: HEMOGLOBIN 7.2 g/dL (12.0-15.5)
--- NOTE | 2020-04-30 20:52 | ER Document Report ---
ED General - General Chief Complaint: Nausea/Vomiting/Diarrhea Stated Complaint: NAUSEA/VOMITING/DIAHERRA Time Seen by Provider: 04/30/20 16:58 Mode of Arrival: Wheelchair Information source: Patient Notes: Patient presents to the ER for evaluation of nausea, vomiting, diarrhea that began this morning. The patient was brought in via EMS. She did have a negative rapid Covid swab by EMS prior to arrival. She denies cough or congestion. She denies fever. She does complain of generalized abdominal pain. She describes her diarrhea as pure water. The patient is typically a very active 79-year-old but has been quite ill today. She is hard of hearing. Nursing notes reviewed and past medical, social, and family histories reviewed and validated. TRAVEL OUTSIDE OF THE [place] IN LAST 30 DAYS: No - Related Data Allergies/Adverse Reactions: No Known Allergies Allergy (Verified 04/30/20 20:40) Home Medications: Prilosec, Mucinex Past Medical History - General Information source: Patient - Social History Smoking Status: Never Smoker Chew tobacco use (# tins/day): No Smoking Education Provided: No Frequency of alcohol use: None Drug Abuse: None Lives with: Family Family History: Reviewed & Not Pertinent Patient has suicidal ideation: No Patient has homicidal ideation: No - Past Medical History Cardiac Medical History: Reports: Hx Hypercholesterolemia, Hx Hypertension Pulmonary Medical History: Reports: Hx COPD EENT Medical History: Reports: None Neurological Medical History: Reports: None Endocrine Medical History: Reports: None Renal/ Medical History: Reports: None Malignancy Medical History: Reports: None GI Medical History: Reports: Hx Colonoscopy Musculoskeletal Medical History: Reports None Skin Medical History: Reports None Psychiatric Medical History: Reports: None Traumatic Medical History: Reports: None Infectious Medical History: Reports: None Past Surgical History: Reports: Hx Cholecystectomy, Hx Hysterectomy, Hx Orthopedic Surgery - Right knee - Immunizations Hx Pneumococcal Vaccination: 05/01/15 Review of Systems - Review of Systems Notes: Constitutional: Negative for fever. HENT: Negative for sore throat. Eyes: Negative for visual changes. Cardiovascular: Negative for chest pain. Respiratory: Negative for shortness of breath. Gastrointestinal: Positive for abdominal pain. Positive for nausea, vomiting, diarrhea. Genitourinary: Negative for dysuria. Musculoskeletal: Negative for back pain. Skin: Negative for rash. Neurological: Negative for headaches, weakness or numbness. 10 point ROS negative except as marked above and in HPI. Physical Exam - Vital signs Vitals: Temp Pulse Resp BP Pulse Ox 97.9 F 71 18 159/54 H 94 04/30/20 20:10 04/30/20 20:10 04/30/20 20:10 04/30/20 20:10 04/30/20 20:10 - Notes Notes: CONSTITUTIONAL: Well appearing. No acute distress. SKIN: Warm, dry, and intact without rash EYES: Extraocular movements are grossly intact, clear conjunctiva HENT: Normocephalic, atraumatic, dry mucus membranes NECK: No obvious swelling, normal range of motion PULMONARY: Normal chest rise and fall. Breath sounds clear and equal bilaterally. No respiratory distress or stridor CARDIOVASCULAR: Regular rate. No murmurs, rubs, gallops. Distal extremities are warm and well perfused. ABDOMINAL: The abdomen is soft but diffusely tender. NEUROLOGIC: Normal speech, moves all extremities. MUSCULOSKELETAL: No gross deformities, atraumatic PSYCHIATRIC: Normal mood and affect Course - Re-evaluation Re-evalutation: 04/30/20 21:00 This case was discussed with Dr. Weber who agrees to evaluate the patient in the emergency room for admission. - Vital Signs Vital signs: Temp Pulse Resp BP Pulse Ox 97.9 F 64 18 125/47 L 94 04/30/20 20:15 04/30/20 22:22 04/30/20 20:10 04/30/20 22:22 04/30/20 20:10 - Laboratory Results Result Diagrams: 04/30/20 17:49 04/30/20 17:49 Laboratory Results Interpreted: 04/30/20 04/30/20 04/30/20 17:25 17:49 17:49 WBC 17.7 H Hgb 7.2 L Hct 25.0 L MCV 57 L MCH 16.3 L MCHC 28.6 L RDW 19.5 H Lymph % (Auto) 10.0 L Absolute Neuts (auto) 14.7 H Seg Neutrophils % 82.9 H Glucose 189 H Stool for White Cells MODERATE H Critical Laboratory Results Reviewed: Yes Attending or Supervising Physician who Reviewed Labs: RAVINDER MAJOR - Radiology Results Critical Radiology Results Reviewed: No Critical Results Discharge - Discharge Clinical Impression: Nausea vomiting and diarrhea, Diffuse abdominal pain Leukocytosis Qualifiers: Leukocytosis type: unspecified Qualified Code(s): D72.829 - Elevated white blood cell count, unspecified Disposition: ADMITTED INPATIENT [facility] Admitted: Medical [facility]
[2020-04-30] MEDS ORDERED: NORMAL SALINE 1000 ML 1,000 ML IV ONE (20:59)
[2020-04-30] MEDS ORDERED: ACETAMINOPHEN 325 MG TABLET PO PRN (22:03)
[2020-04-30] MEDS ORDERED: ONDANSETRON HCL INJ/PF 4 MG/2 ML SDV IV PRN (22:18)
[2020-04-30] MEDS ORDERED: FAMOTIDINE INJ/PF 20 MG/2 ML SDV IV ONE (22:45)
--- NOTE | 2020-04-30 22:45 | PDOC H&P ---
History of Present Illness Admission Date/PCP: 04/30/20 21:08 SONIA SAHU MD Patient complains of: Nausea, vomiting and diarrhea History of Present Illness: LATOYA RHODES is a 79 year old female with a history of tobacco dependence who is hard of hearing now presents to the ED reporting intractable nausea, vomiting and diarrhea which started this morning. She states that she had multiple episodes of vomiting of nonbilious, nonbloody ingested matter. She also had multiple episodes of watery diarrhea, she did not notice any mucus or blood in it. She also reports associated generalized abdominal pain. She states that everything started after she took a laxative in the morning. Since arriving to the ED she had 2 episodes of watery diarrhea and multiple episodes of vomiting. She states that she has been feeling wobbly and unable to keep her balance. She denies any history of hematemesis, melena, hematochezia. Past Medical History Cardiac Medical History: Reports: Hyperlipidema, Hypertension Pulmonary Medical History: Reports: Chronic Obstructive Pulmonary Disease (COPD) EENT Medical History: Reports: None Neurological Medical History: Reports: None Denies: Seizures Endocrine Medical History: Reports: None Renal/ Medical History: Reports: None Malignancy Medical History: Reports: None GI Medical History: Reports: None Musculoskeltal Medical History: Reports: None Skin Medical History: Reports: None Psychiatric Medical History: Reports: None Traumatic Medical History: Reports: None Infectious Medical History: Reports: None Past Surgical History Past Surgical History: Reports: Cholecystectomy, Hysterectomy, Orthopedic Surgery - Right knee Social History Information Source: Patient Lives with: Family Smoking Status: Current Every Day Smoker Electronic Cigarette use?: No Frequency of Alcohol Use: None Hx Prescription Drug Abuse: No - Advance Directive Resuscitation Status: Do Not Resuscitate Family History Family History: Reviewed & Not Pertinent Parental Family History Reviewed: Yes Children Family History Reviewed: Yes Sibling(s) Family History Reviewed.: Yes Medication/Allergy Home Medications: Ciprofloxacin HCl [Cipro 500 mg Tablet] 500 mg PO BID #14 tablet 04/11/19 Metronidazole [Flagyl 500 mg Tablet] 500 mg PO Q6H #28 tablet 04/11/19 Allergies/Adverse Reactions: No Known Allergies Allergy (Verified 04/30/20 20:40) Review of Systems Constitutional: ABSENT: chills, fever(s), headache(s), weight gain, weight loss Eyes: ABSENT: visual disturbances Ears: ABSENT: hearing changes Nose, Mouth, and Throat: ABSENT: headache(s), mouth pain, sore throat Cardiovascular: ABSENT: chest pain, dyspnea on exertion, edema, orthropnea, palpitations Respiratory: ABSENT: cough, hemoptysis Gastrointestinal: PRESENT: as per HPI Genitourinary: ABSENT: dysuria, hematuria Musculoskeletal: ABSENT: joint swelling Integumentary: ABSENT: rash, wounds Neurological: ABSENT: abnormal gait, abnormal speech, confusion, dizziness, focal weakness, syncope Psychiatric: ABSENT: anxiety, depression, homidical ideation, suicidal ideation Endocrine: ABSENT: cold intolerance, heat intolerance, polydipsia, polyuria Hematologic/Lymphatic: ABSENT: easy bleeding, easy bruising Physical Exam Vital Signs: Temp Pulse Resp BP Pulse Ox 97.9 F 64 18 125/47 L 94 04/30/20 20:15 04/30/20 22:22 04/30/20 20:10 04/30/20 22:22 04/30/20 20:10 Intake & Output 04/29/20 04/30/20 05/01/20 06:59 06:59 06:59 Weight 69.853 kg Additional comments: GENERAL APPEARANCE: Alert and oriented x3, in no acute distress HEENT: Normocephalic and atraumatic. No scleral icterus. Dry oral mucosa NECK: Supple. No lymphadenopathy or tenderness. No carotid bruit. No JVD CHEST: Symmetric. Nontender to palpation. LUNGS: Clear with good air entry bilaterally. No wheezing or crackles HEART: Regular rate and rhythm with normal S1 and S2. Has a grade 2 systolic murmur best heard at right second intercostal area ABDOMEN: soft, active bowel sounds, no direct or rebound tenderness. No organom egaly detected. EXTREMITIES: No cyanosis, clubbing, or edema. MUSCULOSKELETAL: No deformity, atrophy or swelling noted PSYCHIATRIC: Recent and remote memory is intact. Appropriate mood and affect. SKIN: Warm, dry, and well perfused. No lesions or rashes are noted. NEUROLOGIC: No focal sensory or motor deficits are noted. Results Laboratory Results: 04/30/20 17:49 04/30/20 17:49 04/30/20 04/30/20 04/30/20 17:25 17:49 17:49 WBC 17.7 H RBC 4.38 Hgb 7.2 L Hct 25.0 L MCV 57 L MCH 16.3 L MCHC 28.6 L RDW 19.5 H Plt Count 301 Seg Neutrophils % 82.9 H Sodium 137.9 Potassium 3.8 Chloride 103 Carbon Dioxide 30 Anion Gap 5 BUN 16 Creatinine 0.66 Est GFR ( Amer) > 60 Glucose 189 H Calcium 9.9 Total Bilirubin 0.4 AST 25 Alkaline Phosphatase 126 Total Protein 6.9 Albumin 4.1 Lipase 92.9 Stool for White Cells MODERATE H 04/30/20 17:49 Troponin I < 0.012 Impressions: Chest X-Ray 04/30/20 17:05 IMPRESSION: NO ACUTE RADIOGRAPHIC FINDING IN THE CHEST. Abdomen/Pelvis CT 04/30/20 17:06 IMPRESSION: 1. There are some small nonobstructing intrarenal calculi bilaterally. No ureteral stone or obstruction. 2. There is some fluid in the colon. Correlate for an enteritis. 3. Mild diverticulosis coli. Assessment and Plan - Diagnosis (1) Nausea vomiting and diarrhea Is this a current diagnosis for this admission?: Yes Plan: Presents with intractable nausea, vomiting and diarrhea Denies any hematemesis, melena or hematochezia Symptoms started after taking laxatives for constipation CT abdomen shows signs of enteritis Was hydrated at the ED Orthostatic vitals were positive and patient continues to have dizziness and loss of balance Admitted for continued hydration and closer observation Patient reports interval improvement in her symptoms Zofran as needed for nausea and vomiting (2) Leukocytosis Qualifiers: Leukocytosis type: unspecified Qualified Code(s): D72.829 - Elevated white blood cell count, unspecified Is this a current diagnosis for this admission?: Yes Plan: WBC count was elevated at 17.7k Patient has no signs of acute infection, likely due to hemoconcentration Chest x-ray showed no acute findings UA not remarkable Likely to improve after IV hydration (3) Anemia Is this a current diagnosis for this admission?: Yes Plan: Patient has microcytic anemia with H&H of 7.2/25, MCV was 57 She had a hemoglobin of 7.5 in March 2019 Has not had any upper or lower GI endoscopy in the past few years Denies any recent history of hematemesis, melena or hematochezia or bleeding from any sites Ordered iron studies, stool guaiac Typed and crossmatched, continue monitoring H&H If hemoglobin stays stable, could consider referral to GI as outpatient for further work-up Consider ferrous sulfate based on iron studies results (4) Tobacco abuse Is this a current diagnosis for this admission?: Yes Plan: Encouraged patient to consider quitting or cutting down smoking Patient declined nicotine patch - Time Time Spent with patient: 35 or more minutes Total Critical Time (Minutes): 45 Smoking Cessation Education: 3 to 10 minutes Medications reviewed and adjusted accordingly: Yes Anticipated Discharge Disposition: Home, Self Care Anticipated Discharge Timeframe: within 48 hours - Inpatient Certification Based on my medical assessment, after consideration of the patient's comorbidities, presenting symptoms, or acuity I expect that the services needed warrant INPATIENT care.: Yes I certify that my determination is in accordance with my understanding of Medicare's requirements for reasonable and necessary INPATIENT services [42 CFR 412.3e].: Yes Medical Necessity: Failure to Improve With Outpatient Therapy, Need Close Monitoring Due to Risk of Patient Decompensation, Need For IV Fluids Post Hospital Care: D/C or Transfer Summary
[2020-05-01] MEDS: RINGERS SOLUTION,LACTATED 1,000 ML IV PRN ×2 (00:52→13:03)
[2020-05-01 07:02] LABS: MEAN CORPUSCULAR HEMOGLOBIN 16.5 pg (27.0-33.4); MEAN CORPUSCULAR HGB CONC 29.2 g/dL (32.0-36.0); MEAN CORPUSCULAR VOLUME 57 fl (80-97); PLATELET COUNT 258 10^3/uL (150-450); RED CELL DISTRIBUTION WIDTH 19.3 % (11.5-14.0); RETICULOCYTE COUNT (AUTO) 1.35 % (0.66-2.85); WHITE BLOOD COUNT 13.1 10^3/uL (4.0-10.5)
[2020-05-01 07:18] LABS: BLOOD UREA NITROGEN 14 mg/dL (7-20); GLUCOSE 100 mg/dL (75-110); IRON(TIBC) 15.9 ug/dL (37-170); POTASSIUM 4.2 mmol/L (3.6-5.0)
[2020-05-01 07:25] LABS: CARBON DIOXIDE 27 mmol/L (22-30); CHLORIDE 107 mmol/L (98-107)
[2020-05-01 07:35] LABS: ABSOLUTE LYMPHOCYTES# (MANUAL) 1.4 10^3/uL (0.5-4.7); ABSOLUTE MONOCYTES # (MANUAL) 0.4 10^3/uL (0.1-1.4); ANISOCYTOSIS 2+; BASOPHILS % (MANUAL) 1 % (0-2); EOSINOPHILS % (MANUAL) 0 % (0-6); HYPOCHROMASIA 3+; LYMPHOCYTES % (MANUAL) 11 % (13-45); MONOCYTES % (MANUAL) 3 % (3-13); POIKILOCYTOSIS 1+; POLYCHROMASIA SLIGHT; SEGMENTED NEUTROPHILS % (MAN) 85 % (42-78); TOTAL CELLS COUNTED 100; TOXIC VACUOLATION PRESENT
[2020-05-01 07:36] LABS: OVALOCYTES 1+; SCHISTOCYTES SLIGHT; TEAR DROP CELLS SLIGHT
[2020-05-01 07:37] LABS: HEMOGLOBIN 6.1 g/dL (12.0-15.5)
[2020-05-01 07:38] LABS: PLATELET COMMENT ADEQUATE
[2020-05-01 07:53] LABS: FERRITIN 5.99 ng/mL (11.1-264.0)
[2020-05-01] MEDS ORDERED: NORMAL SALINE 250 ML IV PRN ×2 (07:57)
[2020-05-01 08:33] LABS: ANION GAP 2 (5-19)
[2020-05-01] MEDS: FAMOTIDINE INJ/PF 20 MG/2 ML SDV IV SCH ×2 (09:38→22:19)
[2020-05-01] MEDS ORDERED: IRON SUCROSE COMPLEX INJ/PF 100 MG/5 ML SDV IV ONE (10:39)
[2020-05-01] MEDS ORDERED: IRON SUCROSE COMPLEX 500 MG in NORMAL SALINE 250 ML IV ONE (13:00)
[2020-05-01 20:33] LABS: ABSOLUTE BASOPHILS # (AUTO) 0.1 10^3/uL (0.0-0.2); ABSOLUTE EOSINOPHILS # (AUTO) 0.1 10^3/uL (0.0-0.6); ABSOLUTE LYMPHOCYTES (AUTO) 2.1 10^3/uL (0.5-4.7); ABSOLUTE MONOCYTES (AUTO) 0.9 10^3/uL (0.1-1.4); ABSOLUTE NEUT (AUTO) 10.6 10^3/uL (1.7-8.2); BASOPHILS % (AUTO) 0.9 % (0-2); EOSINOPHILS % (AUTO) 0.5 % (0-6); HEMATOCRIT 23.3 % (36.0-47.0); MEAN CORPUSCULAR HEMOGLOBIN 18.1 pg (27.0-33.4); MEAN CORPUSCULAR HGB CONC 30.7 g/dL (32.0-36.0); MEAN CORPUSCULAR VOLUME 59 fl (80-97); MONOCYTES % (AUTO) 6.4 % (3-13); PLATELET COUNT 240 10^3/uL (150-450); RED BLOOD COUNT 3.95 10^6/uL (3.72-5.28); RED CELL DISTRIBUTION WIDTH 22.5 % (11.5-14.0); SEGMENTED NEUTROPHILS % (AUTO) 77.2 % (42-78); TOTAL CELLS COUNTED % (AUTO) 100 %; WHITE BLOOD COUNT 13.7 10^3/uL (4.0-10.5)
[2020-05-01 21:35] LABS: ANISOCYTOSIS 3+; HYPOCHROMASIA 4+; PLATELET COMMENT ADEQUATE
[2020-05-01 21:36] LABS: BURR CELLS SLIGHT; OVALOCYTES 1+; TEAR DROP CELLS SLIGHT
[2020-05-01 21:37] LABS: POIKILOCYTOSIS 1+
[2020-05-01 21:40] LABS: HEMOGLOBIN 7.2 g/dL (12.0-15.5)
[2020-05-02] MEDS: RINGERS SOLUTION,LACTATED 1,000 ML IV PRN (03:29)
[2020-05-02 10:24] LABS: ABSOLUTE BASOPHILS # (AUTO) 0.1 10^3/uL (0.0-0.2); ABSOLUTE EOSINOPHILS # (AUTO) 0.2 10^3/uL (0.0-0.6); ABSOLUTE LYMPHOCYTES (AUTO) 1.5 10^3/uL (0.5-4.7); ABSOLUTE MONOCYTES (AUTO) 0.9 10^3/uL (0.1-1.4); ABSOLUTE NEUT (AUTO) 10.4 10^3/uL (1.7-8.2); BASOPHILS % (AUTO) 0.9 % (0-2); EOSINOPHILS % (AUTO) 1.2 % (0-6); HEMOGLOBIN 8.5 g/dL (12.0-15.5); LYMPHOCYTES % (AUTO) 11.3 % (13-45); MEAN CORPUSCULAR HEMOGLOBIN 19.4 pg (27.0-33.4); MEAN CORPUSCULAR HGB CONC 31.3 g/dL (32.0-36.0); MEAN CORPUSCULAR VOLUME 62 fl (80-97); MONOCYTES % (AUTO) 6.9 % (3-13); PLATELET COUNT 204 10^3/uL (150-450); RED BLOOD COUNT 4.36 10^6/uL (3.72-5.28); SEGMENTED NEUTROPHILS % (AUTO) 79.7 % (42-78); TOTAL CELLS COUNTED % (AUTO) 100 %
[2020-05-02 10:48] LABS: BLOOD UREA NITROGEN 6 mg/dL (7-20); CARBON DIOXIDE 26 mmol/L (22-30); CHLORIDE 109 mmol/L (98-107); GLUCOSE 82 mg/dL (75-110); POTASSIUM 3.7 mmol/L (3.6-5.0)
[2020-05-02 10:50] LABS: ANION GAP 4 (5-19)
[2020-05-02 11:02] LABS: ANISOCYTOSIS 3+; HYPOCHROMASIA 3+; OVALOCYTES 1+; PLATELET COMMENT ADEQUATE; POLYCHROMASIA 1+; TARGET CELLS SLIGHT
[2020-05-02] MEDS: IRON SUCROSE COMPLEX INJ/PF 100 MG/5 ML SDV IV SCH (11:14)
[2020-05-02] MEDS: CIPROFLOXACIN HCL 500 MG TABLET PO SCH ×2 (13:29→21:20)
[2020-05-02] MEDS: METRONIDAZOLE 500 MG TABLET PO SCH ×2 (13:29→21:19)
[2020-05-02] MEDS ORDERED: PHENYLEPHRINE HCL 1 EACH SUPP.RECT PR PRN (15:30)
[2020-05-02] MEDS ORDERED: HYDROCORTISONE 1% CREAM 28.35 GM TP PRN (15:32)
[2020-05-02] MEDS: PANTOPRAZOLE SODIUM 40 MG TABLET.DR PO SCH (17:07)
[2020-05-02] MEDS: GLYCERIN/WITCH HAZEL LEAF 1 EACH MED..WIPE TP SCH ×2 (17:18→21:20)
[2020-05-02] MEDS ORDERED: LOPERAMIDE HCL 2 MG CAPSULE PO PRN (17:40)
--- NOTE | 2020-05-02 18:09 | PDOC PROGRESS REPORT ---
Subjective Date:: 05/02/20 Subjective:: NAEO Reason For Visit: CHRONIC BLOOD LOSS ANEMIA Physical Exam Vital Signs: Temp Pulse Resp BP Pulse Ox 98.5 F 66 17 141/47 H 96 05/02/20 11:42 05/02/20 11:42 05/02/20 11:42 05/02/20 11:42 05/02/20 11:42 Intake & Output 05/01/20 05/02/20 05/03/20 06:59 06:59 06:59 Intake Total 1200 3675 360 Balance 1200 3675 360 Weight 69.2 kg 70.1 kg Results Laboratory Results: 05/02/20 09:47 05/02/20 09:47 05/01/20 05/01/20 05/02/20 11:08 20:22 09:47 WBC 13.7 H 13.0 H RBC 3.95 4.36 Hgb 7.2 L 8.5 L Hct 23.3 L 27.0 L MCV 59 L 62 L MCH 18.1 L 19.4 L MCHC 30.7 L 31.3 L RDW 22.5 H 26.0 H Plt Count 240 204 Seg Neutrophils % 77.2 79.7 H Sodium Potassium Chloride Carbon Dioxide Anion Gap BUN Creatinine Est GFR ( Amer) Glucose Calcium Magnesium Blood Type O POSITIVE Antibody Screen NEGATIVE 05/02/20 09:47 WBC RBC Hgb Hct MCV MCH MCHC RDW Plt Count Seg Neutrophils % Sodium 138.7 Potassium 3.7 Chloride 109 H Carbon Dioxide 26 Anion Gap 4 L BUN 6 L Creatinine 0.56 Est GFR ( Amer) > 60 Glucose 82 Calcium 9.0 Magnesium 1.8 Blood Type Antibody Screen 04/30/20 17:49 Stool - Stool - Final 04/30/20 17:49 Stool - Stool Stool Culture - Final NO SALMONELLA, SHIGELLA, CAMPYLOBACTER, OR E.COLI 0157 RECOVERED. NEGATIVE FOR SHIGA TOXINS 1&2. 04/30/20 17:49 Troponin I < 0.012 Impressions: Chest X-Ray 04/30/20 17:05 IMPRESSION: NO ACUTE RADIOGRAPHIC FINDING IN THE CHEST. Abdomen/Pelvis CT 04/30/20 17:06 IMPRESSION: 1. There are some small nonobstructing intrarenal calculi bilaterally. No ureteral stone or obstruction. 2. There is some fluid in the colon. Correlate for an enteritis. 3. Mild diverticulosis coli. Assessment and Plan - Diagnosis (1) Diffuse abdominal pain Is this a current diagnosis for this admission?: Yes (2) Leukocytosis Qualifiers: Leukocytosis type: unspecified Qualified Code(s): D72.829 - Elevated white blood cell count, unspecified Is this a current diagnosis for this admission?: Yes (3) Nausea vomiting and diarrhea Is this a current diagnosis for this admission?: Yes (4) Anemia Is this a current diagnosis for this admission?: Yes (5) Bright red blood per rectum Is this a current diagnosis for this admission?: Yes (6) Lower GI bleed Is this a current diagnosis for this admission?: Yes (7) Tobacco abuse Is this a current diagnosis for this admission?: Yes - Plan Summary Summary: LATOYA RHODES is a 79 year old female with a history of tobacco dependence, chronic anemia, hearing loss who presented with intractable nausea, NBNB vomiti ng and diarrhea. She had multiple episodes of watery diarrhea. She denied any history of hematemesis, melena, hematochezia. Intractable N/V and Diarrhea: resolved within [address] A/P notable for enteritis. Stool WBC were positive. Stool culture was negative. She likely had a viral gastroenteritis. - plan to treat with a short course of Cipro/Flagyl leukocytosis: likely due to enteritis, improving - repeat CBC in AM Bright Red Blood Per Rectum: During her hospitalization, she developed BRBPR, thought to be due to several large external hemmorhoids, for which she is followed by Dr. Castillo. She reportedly gets a colonoscopy Q2 years and is scheduled to have a possible hemorrhoid ligation procedure done as outpatient. - outpatient GI follow up - Anusol PRN - sitz baths BID Acute on Chronic Iron Deficiency Anemia: baseline hgb ~7.5 one year ago. Ferritin is 6. Unclear why she needs colonoscopies every 2 years, but this history alone makes me think that she frequently has polyps. She has received 2 units pRBC this hospitalization, and she remains stable without evidence of ongoing, acute bleeding. Her anemia could potentially be due to severe hemmorhoidal bleeding, but she will certainly benefit from outpatient colonoscopy after discharge regardless. I discussed the case with surgery today who do not feel that she requires urgent inpatient colonoscopy, and I must agre e. We have no GI on-call available here, but she is a known patient of Dr. Castillo'kenneth so will plan for her to follow up as outpatient. - s/p 2 units pRBC with appropriate increase in hgb from 6.1-->8.5 - goal hgb >7 - iron sucrose 100 mg daily IV X3 doses - discharge out oral iron therapy Tobacco Abuse - cessation counseling provided DVT ppx: held in the s/o possible bleeding - Time Time Spent with patient: 35 or more minutes Anticipated Discharge Disposition: Home, Self Care Anticipated Discharge Timeframe: within 48 hours
[2020-05-03] MEDS: METRONIDAZOLE 500 MG TABLET PO SCH (05:37)
[2020-05-03] MEDS: PANTOPRAZOLE SODIUM 40 MG TABLET.DR PO SCH (05:37)
[2020-05-03 06:04] LABS: ABSOLUTE BASOPHILS # (AUTO) 0.1 10^3/uL (0.0-0.2); ABSOLUTE EOSINOPHILS # (AUTO) 0.2 10^3/uL (0.0-0.6); ABSOLUTE LYMPHOCYTES (AUTO) 1.8 10^3/uL (0.5-4.7); ABSOLUTE MONOCYTES (AUTO) 0.9 10^3/uL (0.1-1.4); ABSOLUTE NEUT (AUTO) 10.1 10^3/uL (1.7-8.2); BASOPHILS % (AUTO) 1.1 % (0-2); EOSINOPHILS % (AUTO) 1.8 % (0-6); HEMATOCRIT 27.8 % (36.0-47.0); HEMOGLOBIN 8.6 g/dL (12.0-15.5); LYMPHOCYTES % (AUTO) 13.5 % (13-45); MEAN CORPUSCULAR HEMOGLOBIN 19.1 pg (27.0-33.4); MEAN CORPUSCULAR HGB CONC 30.9 g/dL (32.0-36.0); MEAN CORPUSCULAR VOLUME 62 fl (80-97); MONOCYTES % (AUTO) 6.5 % (3-13); PLATELET COUNT 206 10^3/uL (150-450); RED CELL DISTRIBUTION WIDTH 26.5 % (11.5-14.0); SEGMENTED NEUTROPHILS % (AUTO) 77.1 % (42-78); TOTAL CELLS COUNTED % (AUTO) 100 %; WHITE BLOOD COUNT 13.1 10^3/uL (4.0-10.5)
[2020-05-03 07:16] LABS: ANION GAP 6 (5-19); BLOOD UREA NITROGEN 6 mg/dL (7-20); CALCIUM 8.9 mg/dL (8.4-10.2); CARBON DIOXIDE 25 mmol/L (22-30); CHLORIDE 107 mmol/L (98-107); GLUCOSE 80 mg/dL (75-110); POTASSIUM 3.5 mmol/L (3.6-5.0)
[2020-05-03 07:22] LABS: ANISOCYTOSIS 3+; HYPOCHROMASIA 3+; PLATELET COMMENT ADEQUATE
[2020-05-03 07:23] LABS: OVALOCYTES 1+; TARGET CELLS SLIGHT
[2020-05-03 07:24] LABS: BURR CELLS SLIGHT; POLYCHROMASIA SLIGHT
[2020-05-03] MEDS: FAMOTIDINE INJ/PF 20 MG/2 ML SDV IV SCH (09:56)
[2020-05-03] MEDS: GLYCERIN/WITCH HAZEL LEAF 1 EACH MED..WIPE TP SCH (10:25)
[2020-05-03] MEDS: CIPROFLOXACIN HCL 500 MG TABLET PO SCH (10:25)
[2020-05-03 10:34] VITALS: BP 122/49
[2020-05-03] MEDS: IRON SUCROSE COMPLEX INJ/PF 100 MG/5 ML SDV IV SCH (10:39)
--- NOTE | 2020-05-03 19:33 | PDOC DISCHARGE SUMMARY ---
Impression - Admit/DC Date/PCP Admission Date/Primary Care Provider: 05/01/20 19:10 SONIA SAHU MD Discharge Date: 05/03/20 - Discharge Diagnosis (1) Diffuse abdominal pain Is this a current diagnosis for this admission?: Yes (2) Leukocytosis Is this a current diagnosis for this admission?: Yes (3) Nausea vomiting and diarrhea Is this a current diagnosis for this admission?: Yes (4) Anemia Is this a current diagnosis for this admission?: Yes (5) Bright red blood per rectum Is this a current diagnosis for this admission?: Yes (6) Lower GI bleed Is this a current diagnosis for this admission?: Yes (7) Tobacco abuse Is this a current diagnosis for this admission?: Yes - Assessment Summary: LATOYA RHODES is a 79 year old female with a history of tobacco dependence, chronic anemia, hearing loss who presented with intractable nausea, NBNB vomiting and diarrhea. She had multiple episodes of watery diarrhea. She denied any history of hematemesis, melena, hematochezia. Intractable N/V and Diarrhea: resolved within [address] A/P notable for enteritis. Stool WBC were positive. Stool culture was negative. She likely had a viral gastroenteritis. leukocytosis: likely due to enteritis, improving Bright Red Blood Per Rectum: During her hospitalization, she developed BRBPR, thought to be due to several large external hemmorhoids, for which she is followed by Dr. Castillo. She reportedly gets a colonoscopy Q2 years and is nakita eduled to have a possible hemorrhoid ligation procedure done as outpatient. She was advised to follow up with GI as outpatient in 1-2 weeks. She was prescribed Anusol PRN and sitz baths BID. Acute on Chronic Iron Deficiency Anemia: baseline hgb ~7.5 one year ago. Ferritin is 6. Unclear why she needs colonoscopies every 2 years, but this history alone makes me think that she frequently has polyps. She has received 2 units pRBC this hospitalization, and she remains stable without evidence of ongoing, acute bleeding. Her anemia could potentially be due to severe hemmorho idal bleeding, but she will certainly benefit from outpatient colonoscopy after discharge regardless. I discussed the case with surgery who do not feel that she requires urgent inpatient colonoscopy, and I must agree. We have no GI on-call available here, but she is a known patient of Dr. Castillo's so will plan for her to follow up as outpatient. - s/p 2 units pRBC with appropriate increase in hgb from 6.1-->8.5 - s/p iron sucrose 100 mg daily IV X3 doses - discharged on daily oral iron therapy - repeat CBC as outpatient in 2 weeks Tobacco Abuse - cessation counseling provided - Additional Information Resuscitation Status: Do Not Resuscitate Discharge Diet: Regular Discharge Activity: Activity As Tolerated Referrals: SONIA SAHU MD [Primary Care Provider] - SUZANNA CASTILLO MD [ACTIVE STAFF] - Prescriptions: Ferrous Sulfate [Feosol 325 mg Tablet] 325 mg PO DAILY #30 tab Hydrocortisone [Hydrocortisone 1% Cream 28.35 Gm] 1 applic TP QIDP PRN #1 tube PRN Reason: hemmorhoid discomfort Omeprazole 40 mg PO DAILY #30 capsule. Home Medications: Lisinopril [Zestril] 40 mg PO DAILY 05/01/20 Ferrous Sulfate [Feosol 325 mg Tablet] 325 mg PO DAILY #30 tab 05/03/20 Hydrocortisone [Hydrocortisone 1% Cream 28.35 Gm] 1 applic TP QIDP PRN #1 tube 05/03/20 Omeprazole 40 mg PO DAILY #30 capsule. 05/03/20 History of Present Illiness History of Present Illness: LATOYA RHODES is a 79 year old female Physical Exam Vital Signs: Temp Pulse Resp BP Pulse Ox 97.9 F 66 18 122/49 L 96 05/03/20 10:33 05/03/20 10:33 05/03/20 10:33 05/03/20 10:33 05/03/20 10:33 Intake & Output 05/02/20 05/03/20 05/04/20 06:59 06:59 06:59 Intake Total 3675 960 1000 Balance 3675 960 1000 Weight 70.1 kg 69 kg Results Laboratory Results: WBC 13.1 10^3/uL (4.0-10.5) H 05/03/20 05:37 RBC 4.50 10^6/uL (3.72-5.28) 05/03/20 05:37 Hgb 8.6 g/dL (12.0-15.5) L 05/03/20 05:37 Hct 27.8 % (36.0-47.0) L 05/03/20 05:37 MCV 62 fl (80-97) L 05/03/20 05:37 MCH 19.1 pg (27.0-33.4) L 05/03/20 05:37 MCHC 30.9 g/dL (32.0-36.0) L 05/03/20 05:37 RDW 26.5 % (11.5-14.0) H 05/03/20 05:37 Plt Count 206 10^3/uL (150-450) 05/03/20 05:37 Lymph % (Auto) 13.5 % (13-45) 05/03/20 05:37 [place] % (Auto) 6.5 % (3-13) 05/03/20 05:37 Eos % (Auto) 1.8 % (0-6) 05/03/20 05:37 Baso % (Auto) 1.1 % (0-2) 05/03/20 05:37 Reticulocyte # 0.050 10^6/uL (0.028-0.122) 05/01/20 06:09 Absolute Neuts (auto) 10.1 10^3/uL (1.7-8.2) H 05/03/20 05:37 Absolute Lymphs (auto) 1.8 10^3/uL (0.5-4.7) 05/03/20 05:37 Absolute Monos (auto) 0.9 10^3/uL (0.1-1.4) 05/03/20 05:37 Absolute Eos (auto) 0.2 10^3/uL (0.0-0.6) 05/03/20 05:37 Absolute Basos (auto) 0.1 10^3/uL (0.0-0.2) 05/03/20 05:37 Total Counted 100 05/01/20 06:09 Seg Neutrophils % 77.1 % (42-78) 05/03/20 05:37 Seg Neuts % (Manual) 85 % (42-78) H 05/01/20 06:09 Lymphocytes % (Manual) 11 % (13-45) L 05/01/20 06:09 Monocytes % (Manual) 3 % (3-13) 05/01/20 06:09 Eosinophils % (Manual) 0 % (0-6) 05/01/20 06:09 Basophils % (Manual) 1 % (0-2) 05/01/20 06:09 Abs Neuts (Manual) 11.1 10^3/uL (1.7-8.2) H 05/01/20 06:09 Abs Lymphs (Manual) 1.4 10^3/uL (0.5-4.7) 05/01/20 06:09 Abs Monocytes (Manual) 0.4 10^3/uL (0.1-1.4) 05/01/20 06:09 Absolute Eos (Manual) 0.0 10^3/uL (0.0-0.6) 05/01/20 06:09 Abs Basophils (Manual) 0.1 10^3/uL (0.0-0.2) 05/01/20 06:09 Toxic Vacuolation PRESENT 05/01/20 06:09 Platelet Comment ADEQUATE 05/03/20 05:37 Polychromasia SLIGHT 05/03/20 05:37 Hypochromasia 3+ 05/03/20 05:37 Poikilocytosis 1+ 05/01/20 20:22 Anisocytosis 3+ 05/03/20 05:37 Microcytosis 3+ 05/03/20 05:37 Target Cells SLIGHT 05/03/20 05:37 Tear Drop Cells SLIGHT 05/01/20 20:22 Ovalocytes 1+ 05/03/20 05:37 Girard Cells SLIGHT 05/03/20 05:37 Acanthocytes (Spur) 1+ 04/30/20 17:49 Schistocytes SLIGHT 05/01/20 06:09 Retic Count (auto) 1.35 % (0.66-2.85) 05/01/20 06:09 Sodium 138.2 mmol/L (137-145) 05/03/20 05:37 Potassium 3.5 mmol/L (3.6-5.0) L 05/03/20 05:37 Chloride 107 mmol/L (98-107) 05/03/20 05:37 Carbon Dioxide 25 mmol/L (22-30) 05/03/20 05:37 Anion Gap 6 (5-19) 05/03/20 05:37 BUN 6 mg/dL (7-20) L 05/03/20 05:37 Creatinine 0.60 mg/dL (0.52-1.25) 05/03/20 05:37 Est GFR ( Amer) > 60 (>60) 05/03/20 05:37 Est GFR (MDRD) Non-Af > 60 (>60) 05/03/20 05:37 Glucose 80 mg/dL (75-110) 05/03/20 05:37 POC Glucose 121 mg/dL (70-110) H 05/02/20 15:23 Calcium 8.9 mg/dL (8.4-10.2) 05/03/20 05:37 Magnesium 1.8 mg/dL (1.6-2.3) 05/02/20 09:47 Iron 15.9 ug/dL (37-170) L 05/01/20 06:09 TIBC 494 ug/dL (250-450) H 05/01/20 06:09 % Saturation 3 % 05/01/20 06:09 Ferritin 5.99 ng/mL (11.1-264.0) L 05/01/20 06:09 Total Bilirubin 0.4 mg/dL (0.2-1.3) 04/30/20 17:49 Direct Bilirubin 0.1 mg/dL (0.0-0.4) 04/30/20 17:49 Neonat Total Bilirubin Not Reportable 04/30/20 17:49 Neonat Direct Bilirubin Not Reportable 04/30/20 17:49 Neonat Indirect Bili Not Reportable 04/30/20 17:49 AST 25 U/L (14-36) 04/30/20 17:49 ALT 11 U/L (<35) 04/30/20 17:49 Alkaline Phosphatase 126 U/L (38-126) 04/30/20 17:49 Troponin I < 0.012 ng/mL 04/30/20 17:49 Total Protein 6.9 g/dL (6.3-8.2) 04/30/20 17:49 Albumin 4.1 g/dL (3.5-5.0) 04/30/20 17:49 Lipase 92.9 U/L (23-300) 04/30/20 17:49 Vitamin B12 274.0 pg/mL (239-931) 05/01/20 06:09 Folate 13.10 ng/mL (>2.76) 05/01/20 06:09 Stool for White Cells MODERATE H 04/30/20 17:25 Influenza A (RT-PCR) NEGATIVE (NEGATIVE) 04/30/20 22:24 Influenza B (RT-PCR) NEGATIVE (NEGATIVE) 04/30/20 22:24 RSV (RT-PCR) NEGATIVE (NEGATIVE) 04/30/20 22:24 SARS-CoV-2 Rap RNA(RT-PCR) NEGATIVE (NEGATIVE) 04/30/20 22:24 Blood Type O POSITIVE 05/01/20 11:08 Blood Type Confirm O POSITIVE 05/01/20 11:08 Antibody Screen NEGATIVE 05/01/20 11:08 Crossmatch See Detail 05/01/20 11:08 04/30/20 17:49 Troponin I < 0.012 Impressions: Chest X-Ray 04/30/20 17:05 IMPRESSION: NO ACUTE RADIOGRAPHIC FINDING IN THE CHEST. Abdomen/Pelvis CT 04/30/20 17:06 IMPRESSION: 1. There are some small nonobstructing intrarenal calculi bilaterally. No ureteral stone or obstruction. 2. There is some fluid in the colon. Correlate for an enteritis. 3. Mild diverticulosis coli. Stroke Is this a Stroke Patient?: No Acute Heart Failure Is this a Heart Failure Patient?: No
[2020-05-04 11:37] LABS: PATH REVIEW PATHOLOGIST REVIEWED
== END 2020-05-03 11:11 | disposition home or self-care (01) | DRG 392 ==
LOC: ER 15:36 → INTOOBSV 21:08 → EH 21:08 → 4S 05-01 00:45 → OBSVTOIN 05-01 19:10 → 4S 05-02 15:37
PROVIDERS: ADMIT Student in an Organized Health Care Education/Training Program; ATTEND Hospitalist
PROC: 30233N1 Transfusion of Nonautologous Red Blood Cells into Peripheral Vein, Percutaneous Approach (ICD-10-PCS; principal; 2020-05-01)
DX: A08.4 Viral intestinal infection, unspecified (principal); D62 Acute posthemorrhagic anemia; K64.8 Other hemorrhoids; F17.210 Nicotine dependence, cigarettes, uncomplicated; E78.5 Hyperlipidemia, unspecified; I10 Essential (primary) hypertension; J44.9 Chronic obstructive pulmonary disease, unspecified; E78.00 Pure hypercholesterolemia, unspecified; Z20.822 Contact with and (suspected) exposure to COVID-19; Z66 Do not resuscitate
CPT/HCPCS: 36415; 36430; 71045; 74176; 80048; 80053; 82607; 82728; 82746; 82962; 83540; 83550; 83690; 83735; 84484; 85025; 85045; 86850; 86900; 86901; 86920; 87045; 87205; 89055; 93005; 93010; 99285; 0241U; C9803; J1756; J3490; J7030; J7050; J7120; P9016; S0028